=== PATIENT | male | born 1955 | race Caucasian/White ===

== ENCOUNTER 2019-03-25 12:46 | Inpatient (IN) | payer MEDICARE ==
[2019-03-25] MEDS ORDERED: DILTIAZEM DRIP BOLUS FROM BAG 1 MG SOLN IV ONE (13:33)
[2019-03-25] MEDS ORDERED: methylPREDNISolone SOD SUCCI 125 MG/2 ML VIAL IV STA (13:34)
[2019-03-25] MEDS ORDERED: SODIUM CHLORIDE 0.9% 500 ML 500 ML IV ONE (13:34)
[2019-03-25] MEDS ORDERED: IPRATROPIUM-ALBUTEROL 3 ML NEB INHALATION STA (13:34)
[2019-03-25] MEDS ORDERED: ADENOSINE 3 MG/ML 2 ML VIAL IVP STA (13:43)
[2019-03-25] MEDS: DILTIAZEM 125 MG in SODIUM CHLORIDE 0.9% 100 ML IV SCH ×2 (13:46→20:08)
--- NOTE | 2019-03-25 13:48 | ED ---
General Adult HPI - General Chief complaint: Shortness of Breath Stated complaint: SOB Time Seen by Provider: 03/25/19 13:00 Source: patient, RN notes reviewed Mode of arrival: wheelchair Limitations: no limitations - History of Present Illness Initial comments: This is a 63-year-old male with a past medical history significant for COPD. Patient states he has been calm more more short of breath lately he's been using treatments at home but he has not improved. Patient states he also is coughing more than normal. Patient denies any significant sputum production. Patient states he feels his heart racing and that is been ongoing for about a week. Patient denies any chest pain.. Patient denies any fever chills. Patient is denying any abdominal pain patient denies nausea vomiting diarrhea. Patient states he has been having some swelling to the legs more so on the right than the left. - Related Data Home Medications Medication Instructions Recorded Confirmed Albuterol Sulfate [Proair Hfa] 1 - 2 puff INHALATION RT-Q4H PRN 03/25/19 03/25/19 Budesonide [Pulmicort] 0.5 mg INHALATION RT-BID 03/25/19 03/25/19 Enalapril [Vasotec] 20 mg PO DAILY 03/25/19 03/25/19 Fluticasone/Umeclidin/Vilanter 1 puff INHALATION RT-DAILY 03/25/19 03/25/19 [Trelegy Ellipta 100-62.5-25] Furosemide [Lasix] 20 mg PO MOWEFR 03/25/19 03/25/19 HYDROcodone/APAP 5-325MG [[place] 1 tab PO BID 03/25/19 03/25/19 5-325] Ipratropium-Albuterol Nebulize 3 ml INHALATION RT-QID 03/25/19 03/25/19 [Duoneb 0.5 mg-3 mg/3 ml Soln] Metoprolol Succinate (ER) [Toprol 100 mg PO DAILY 03/25/19 03/25/19 Xl] Tamsulosin [Flomax] 0.4 mg PO DAILY 03/25/19 03/25/19 busPIRone HCl [Buspar] 10 mg PO BID 03/25/19 03/25/19 predniSONE 5 mg PO DAILY 03/25/19 03/25/19 rOPINIRole HCL [Requip] 3 mg PO TID 03/25/19 03/25/19 Allergies Allergy/AdvReac Type Severity Reaction Status Date / Time No Known Allergies Allergy Verified 03/25/19 13:33 Review of Systems ROS Statement: Those systems with pertinent positive or pertinent negative responses have been documented in the HPI. ROS Other: All systems not noted in ROS Statement are negative. Past Medical History Past Medical History: Coronary Artery Disease (CAD), COPD, Hyperlipidemia, Hypertension, Myocardial Infarction ([place]) Additional Past Medical History / Comment(s): EMPHYSEMA History of Any Multi-Drug Resistant Organisms: None Reported Past Surgical History: Heart Catheterization With Stent, Hernia Repair, Orthopedic Surgery Past Psychological History: No Psychological Hx Reported Smoking Status: Former smoker Past Alcohol Use History: None Reported Past Drug Use History: None Reported General Exam - General Exam Comments Initial Comments: GENERAL: Patient is well-developed and well-nourished. Patient is nontoxic and well- hydrated and is in mild distress. ENT: Neck is soft and supple. No significant lymphadenopathy is noted. Oropharynx is clear. Moist mucous membranes. Neck has full range of motion without eliciting any pain. EYES: The sclera were anicteric and conjunctiva were pink and moist. Extraocular movements were intact and pupils were equal round and reactive to light. Eyelids were unremarkable. PULMONARY: Patient is not moving much air. CARDIOVASCULAR: Patient's heart rate is about 160 beats a minute ABDOMEN: Soft and nontender with normal bowel sounds. No palpable organomegaly was noted. There is no palpable pulsatile mass. SKIN: Skin is clear with no lesions or rashes and otherwise unremarkable. NEUROLOGIC: Patient is alert and oriented x3. Cranial nerves II through XII are grossly intact. Motor and sensory are also intact. Normal speech, volume and content. Symmetrical smile. MUSCULOSKELETAL: Normal extremities with adequate strength and full range of motion. No lower extremity swelling or edema. No calf tenderness. LYMPHATICS: No significant lymphadenopathy is noted PSYCHIATRIC: Normal psychiatric evaluation. Limitations: no limitations Course Vital Signs 03/25/19 03/25/19 03/25/19 13:05 13:49 13:50 Temperature 98.4 F Pulse Rate 161 H 161 H Respiratory 28 H 24 24 Rate Blood Pressure 126/99 133/87 O2 Sat by Pulse 93 L 96 Oximetry 03/25/19 03/25/19 03/25/19 13:57 14:04 14:20 Temperature Pulse Rate 163 H 163 H 152 H Respiratory 22 22 24 Rate Blood Pressure 121/75 105/83 118/82 O2 Sat by Pulse 96 95 94 L Oximetry 03/25/19 03/25/19 15:40 15:44 Temperature Pulse Rate 151 H 158 H Respiratory 24 26 H Rate Blood Pressure 110/80 119/50 O2 Sat by Pulse 92 L 93 L Oximetry Medical Decision Making - Medical Decision Making EKG shows supraventricular tachycardia at 163 bpm QRS is 90 QT interval 306 QTC is 503. I tried 6 mg of adenosine slowed the patient's heart rate down however it looked at that point in time that the patient was in atrial flutter. Patient's heart rate immediately went back up to 160 beats a minute After the adenosine was given another EKG was done shows a heart rate of 155 bpm it appears that the patient is in atrial flutter. QRS is 92 QT interval is 272 QTC is 437. Patient's CT to rule out PE. He was negative. Patient was placed on heparin and Cardizem drip was started and continued. Patient did receive a couple boluses of Cardizem. I spoke with because he agreed to admit the patient he admitted the patient cannot saw the patient. I offered started the patient on amiodarone and Dr. Ewing wanted to continue with the Cardizem at this time. - Lab Data Result diagrams: 03/25/19 13:34 03/25/19 13:34 Lab Results 03/25/19 03/25/19 03/25/19 Range/Units 13:34 13:34 13:34 WBC 6.6 (3.8-10.6) k/uL RBC 3.42 L (4.30-5.90) m/uL Hgb 11.3 L (13.0-17.5) gm/dL Hct 33.7 L (39.0-53.0) % MCV 98.3 (80.0-100.0) fL MCH 33.1 (25.0-35.0) pg MCHC 33.6 (31.0-37.0) g/dL RDW 14.6 (11.5-15.5) % Plt Count 271 (150-450) k/uL Neutrophils % 70 % Lymphocytes % 17 % Monocytes % 7 % Eosinophils % 2 % Basophils % 1 % Neutrophils # 4.6 (1.3-7.7) k/uL Lymphocytes # 1.1 (1.0-4.8) k/uL Monocytes # 0.5 (0-1.0) k/uL Eosinophils # 0.1 (0-0.7) k/uL Basophils # 0.0 (0-0.2) k/uL PT 10.2 (9.0-12.0) sec INR 0.9 (<1.2) APTT 25.3 (22.0-30.0) sec D-Dimer 1.03 H (<0.60) mg/L FEU Sodium 142 (137-145) mmol/L Potassium 4.3 (3.5-5.1) mmol/L Chloride 101 (98-107) mmol/L Carbon Dioxide 34 H (22-30) mmol/L Anion Gap 7 mmol/L BUN 21 H (9-20) mg/dL Creatinine 0.93 (0.66-1.25) mg/dL Est GFR (CKD-EPI)AfAm >90 (>60 ml/min/1.73 sqM) Est GFR (CKD-EPI)NonAf 86 (>60 ml/min/1.73 sqM) Glucose 109 H (74-99) mg/dL Calcium 9.3 (8.4-10.2) mg/dL Magnesium 2.1 (1.6-2.3) mg/dL Total Bilirubin 0.2 (0.2-1.3) mg/dL AST 30 (17-59) U/L ALT 25 (21-72) U/L Alkaline Phosphatase 49 (38-126) U/L Troponin I (0.000-0.034) ng/mL NT-Pro-B Natriuret Pep pg/mL Total Protein 6.8 (6.3-8.2) g/dL Albumin 4.1 (3.5-5.0) g/dL 03/25/19 03/25/19 Range/Units 13:34 13:34 WBC (3.8-10.6) k/uL RBC (4.30-5.90) m/uL Hgb (13.0-17.5) gm/dL Hct (39.0-53.0) % MCV (80.0-100.0) fL MCH (25.0-35.0) pg MCHC (31.0-37.0) g/dL RDW (11.5-15.5) % Plt Count (150-450) k/uL Neutrophils % % Lymphocytes % % Monocytes % % Eosinophils % % Basophils % % Neutrophils # (1.3-7.7) k/uL Lymphocytes # (1.0-4.8) k/uL Monocytes # (0-1.0) k/uL Eosinophils # (0-0.7) k/uL Basophils # (0-0.2) k/uL PT (9.0-12.0) sec INR (<1.2) APTT (22.0-30.0) sec D-Dimer (<0.60) mg/L FEU Sodium (137-145) mmol/L Potassium (3.5-5.1) mmol/L Chloride (98-107) mmol/L Carbon Dioxide (22-30) mmol/L Anion Gap mmol/L BUN (9-20) mg/dL Creatinine (0.66-1.25) mg/dL Est GFR (CKD-EPI)AfAm (>60 ml/min/1.73 sqM) Est GFR (CKD-EPI)NonAf (>60 ml/min/1.73 sqM) Glucose (74-99) mg/dL Calcium (8.4-10.2) mg/dL Magnesium (1.6-2.3) mg/dL Total Bilirubin (0.2-1.3) mg/dL AST (17-59) U/L ALT (21-72) U/L Alkaline Phosphatase (38-126) U/L Troponin I <0.012 (0.000-0.034) ng/mL NT-Pro-B Natriuret Pep 1170 pg/mL Total Protein (6.3-8.2) g/dL Albumin (3.5-5.0) g/dL Critical Care Time Critical Care Time: Yes Total Critical Care Time: 35 Disposition Clinical Impression: Atrial flutter with rapid ventricular response, COPD (chronic obstructive pulmonary disease) Disposition: ADMITTED IP TO THIS [facility] Referrals: Justino Baldwin MD [Primary Care Provider] - 1-2 days Time of Disposition: 16:20
[2019-03-25 14:20] LABS: Basophils % (A) 1 %; Eosinophils # (A) 0.1 k/uL (0-0.7); Eosinophils % (A) 2 %; HCT 33.7 % (39.0-53.0); HGB 11.3 gm/dL (13.0-17.5); Lymphocytes # (A) 1.1 k/uL (1.0-4.8); Lymphocytes % (A) 17 %; MCH 33.1 pg (25.0-35.0); MCHC 33.6 g/dL (31.0-37.0); MCV 98.3 fL (80.0-100.0); Mean Platelet Volume 7.5; Monocytes # (A) 0.5 k/uL (0-1.0); Monocytes % (A) 7 %; Neutrophils # (A) 4.6 k/uL (1.3-7.7); Neutrophils % (A) 70 %; Platelet Count 271 k/uL (150-450); RBC 3.42 m/uL (4.30-5.90); RDW 14.6 % (11.5-15.5); WBC 6.6 k/uL (3.8-10.6)
[2019-03-25 14:32] LABS: ALT 25 U/L (21-72); AST 30 U/L (17-59); African American GFR (CKD) >90 (>60 ml/min/1.73 sqM); Albumin 4.1 g/dL (3.5-5.0); Alkaline Phosphatase 49 U/L (38-126); Anion Gap 7 mmol/L; Blood Urea Nitrogen 21 mg/dL (9-20); Calcium 9.3 mg/dL (8.4-10.2); Carbon Dioxide 34 mmol/L (22-30); Chloride 101 mmol/L (98-107); Glucose 109 mg/dL (74-99); Magnesium 2.1 mg/dL (1.6-2.3); Potassium 4.3 mmol/L (3.5-5.1); Sodium 142 mmol/L (137-145); Total Bilirubin 0.2 mg/dL (0.2-1.3); Total Protein 6.8 g/dL (6.3-8.2)
--- NOTE | 2019-03-25 14:35 | XR ---
EXAMINATION TYPE: XR chest 2V DATE OF EXAM: 03/25/2019 COMPARISON: Chest x-ray 09/25/2018 HISTORY: Difficulty breathing, shortness of breath TECHNIQUE: Frontal and lateral views of the chest are obtained. FINDINGS: There are prominent lung volumes with flattening the hemidiaphragms. Interstitium is incre ased. Aorta is dense. Heart is size is stable. No evident pneumothorax or pleural effusion. IMPRESSION: No acute abnormality.
[2019-03-25 14:37] LABS: INR 0.9 (<1.2); Partial Thromboplastin Time 25.3 sec (22.0-30.0); Prothrombin Time 10.2 sec (9.0-12.0)
[2019-03-25 14:45] LABS: D-Dimer 1.03 mg/L FEU (<0.60)
[2019-03-25] MEDS ORDERED: HEPARIN SODIUM,PORCINE 5,000 UNIT/ML 1 ML VIAL IV ONE (14:50)
[2019-03-25] MEDS: HEPARIN SOD,PORK IN 0.45% NACL 25,000 UNIT in 0.45% NACL 1 250ML.BAG IV SCH (15:08)
[2019-03-25] MEDS ORDERED: DILTIAZEM DRIP BOLUS FROM BAG 1 MG SOLN IV STA ×2 (15:31→20:03)
--- NOTE | 2019-03-25 15:44 | P.HPIM ---
History of Present Illness Patient is pleasant 58-year-old gentleman came in with compensative shortness of breath restarted couple days ago denied any significant alcohol orthopnea paroxysmal nocturnal dyspnea. Chest x-ray did not show pneumonia pulmonary ed moi. BNP is around 1100. Patient appears to have some bronchial tachycardia was given Pitocin followed by atrial flutter or fibrillation.'s heart rates to me still remains high at 160s on Cardizem. This is a new onset atrial fibrillation patient does have history of coronary artery disease stents in the past. Patient's white blood cell count is 6.6 d-dimer is minimally elevated because of which patient is getting a CT angios the chest to rule out pulmonary embolism. Review of Systems REVIEW OF SYSTEMS: CONSTITUTIONAL: No fever, no malaise, no fatigue. HEENT: No recent visual problems or hearing problems. Denied any sore throat. CARDIOVASCULAR: No chest pain, orthopnea, PND, no syncope. PULMONARY: no cough, no hemoptysis. GASTROINTESTINAL: No diarrhea, no nausea, no vomiting, no abdominal pain. NEUROLOGICAL: No headaches, no weakness, no numbness. HEMATOLOGICAL: Denies any bleeding or petechiae. GENITOURINARY: Denies any burning micturition, frequency, or urgency. MUSCULOSKELETAL/RHEUMATOLOGICAL: Denies any joint pain, swelling, or any muscle pain. ENDOCRINE: Denies any polyuria or polydipsia. The rest of the 14-point review of systems is negative. Past Medical History Past Medical History: Coronary Artery Disease (CAD), COPD, Hyperlipidemia, Hypertension, Myocardial Infarction ([place]) Additional Past Medical History / Comment(s): EMPHYSEMA History of Any Multi-Drug Resistant Organisms: None Reported Past Surgical History: Heart Catheterization With Stent, Hernia Repair, Orthopedic Surgery Past Psychological History: No Psychological Hx Reported Smoking Status: Former smoker Past Alcohol Use History: None Reported Past Drug Use History: None Reported Medications and Allergies Home Medications Medication Instructions Recorded Confirmed Type Albuterol Sulfate [Proair Hfa] 1 - 2 puff INHALATION RT-Q4H PRN 03/25/19 03/25/19 History Budesonide [Pulmicort] 0.5 mg INHALATION RT-BID 03/25/19 03/25/19 History Enalapril [Vasotec] 20 mg PO DAILY 03/25/19 03/25/19 History Fluticasone/Umeclidin/Vilanter 1 puff INHALATION RT-DAILY 03/25/19 03/25/19 History [Trelegy Ellipta 100-62.5-25] Furosemide [Lasix] 20 mg PO MOWEFR 03/25/19 03/25/19 History HYDROcodone/APAP 5-325MG [[place] 1 tab PO BID 03/25/19 03/25/19 History 5-325] Ipratropium-Albuterol Nebulize 3 ml INHALATION RT-QID 03/25/19 03/25/19 History [Duoneb 0.5 mg-3 mg/3 ml Soln] Metoprolol Succinate (ER) [Toprol 100 mg PO DAILY 03/25/19 03/25/19 History Xl] Tamsulosin [Flomax] 0.4 mg PO DAILY 03/25/19 03/25/19 History busPIRone HCl [Buspar] 10 mg PO BID 03/25/19 03/25/19 History predniSONE 5 mg PO DAILY 03/25/19 03/25/19 History rOPINIRole HCL [Requip] 3 mg PO TID 03/25/19 03/25/19 History Allergies Allergy/AdvReac Type Severity Reaction Status Date / Time No Known Allergies Allergy Verified 03/25/19 13:33 Physical Exam Vitals: Vital Signs Temp Pulse Resp BP Pulse Ox 03/25/19 14:20 152 H 24 118/82 94 L 03/25/19 14:04 163 H 22 105/83 95 03/25/19 13:57 163 H 22 121/75 96 03/25/19 13:50 24 03/25/19 13:49 161 H 24 133/87 96 03/25/19 13:05 98.4 F 161 H 28 H 126/99 93 L Intake and Output 03/25/19 03/25/19 03/25/19 06:59 14:59 22:59 Other: Weight 99.79 kg PHYSICAL EXAMINATION: GENERAL: The patient is alert and oriented x3, not in any acute distress. Obese HEENT: Pupils are round and equally reacting to light. EOMI. No scleral icterus. No conjunctival pallor. Normocephalic, atraumatic. No pharyngeal erythema. No thyromegaly. CARDIOVASCULAR: S1 and S2 present. No murmurs, rubs, or gallops. PULMONARY: Diminished air entry into bilateral lung diamond ABDOMEN: Soft, nontender, nondistended, normoactive bowel sounds. No palpable organomegaly. MUSCULOSKELETAL: No joint swelling or deformity. EXTREMITIES: No cyanosis, clubbing, or pedal edema. NEUROLOGICAL: Gross neurological examination did not reveal any focal deficits. SKIN: No rashes. Results CBC & Chem 7: 03/25/19 13:34 03/25/19 13:34 Labs: Abnormal Lab Results - Last 24 Hours (Table) 03/25/19 03/25/19 03/25/19 Range/Units 13:34 13:34 13:34 RBC 3.42 L (4.30-5.90) m/uL Hgb 11.3 L (13.0-17.5) gm/dL Hct 33.7 L (39.0-53.0) % D-Dimer 1.03 H (<0.60) mg/L FEU Carbon Dioxide 34 H (22-30) mmol/L BUN 21 H (9-20) mg/dL Glucose 109 H (74-99) mg/dL Assessment and Plan Plan: -Shortness of breath: Probably secondary to cardiac arrhythmia including atrial fibrillation or flutter contributing to that patient is on Cardizem which will be continued patient doesn't have any history of congestive heart failure do not have any echocardiogram available chest x-ray did not show any pulmonary edema. Patient is not in COPD exacerbation, quit smoking years ago -COPD without any acute exacerbation -Elevated d-dimer and CT angios of the chest is being obtained to rule out pulmonary embolism because of shortness of breath and tachycardia as mentioned above -Chronic hypercapnic respiratory failure with end-stage COPD uses 4 L of oxygen at home presently on 4 L. -Coronary disease with stent in the past -Hyperlipidemia -Hypertension as patient is on Cardizem I'm resuming his blood pressure because of that hold off on MARTA inhibitor at this time
--- NOTE | 2019-03-25 15:52 | CT ---
EXAMINATION TYPE: CT chest angio for PE DATE OF EXAM: 03/25/2019 COMPARISON: HISTORY: severe shortness of breath CT DLP: 453.7 mGycm CONTRAST: CT chest with contrast and 3D reconstruction with MIP imaging is performed with IV Contrast, patient injected with 100 mL of Isovue 370. Contrast-enhanced CT of the chest was performed through the course of the pulmonary arteries with gregory g and mediastinal window settings submitted. 3D reconstruction with MIP imaging was also performed. PULMONARY ARTERIES: The pulmonary arteries and their major tributaries are patent. I do not see naila dence for sizable filling defect to suggest pulmonary embolic process. LUNGS: Scattered groundglass opacity seen within both lung diamond may reflect acute inflammatory proc ess. 3 right lower lobe pulmonary nodules noted measuring up to 8.2 mm. Follow-up CT is advised in 3 months. Lower lobe atelectasis. MEDIASTINUM: Thoracic aorta is of normal caliber,however, evaluation is limited given timing of the contrast bolus. If there is concern for thoracic aortic pathology consider AYAKA. Correlate clinicall y . The heart is not enlarged. No evidence for mediastinal mass. No mediastinal lymph nodes greater than 1cm. HILAR STRUCTURES: No evidence for mass. No hilar lymph nodes greater than 1 cm. UPPER ABDOMEN: No significant abnormality is seen. IMPRESSION: 1. No evidence for Pulmonary embolism at this time. 2. Correlate for acute inflammatory process. 3. 3 month follow up for nonspecific right lower lobe pulmonary nodularity.
[2019-03-25] MEDS ORDERED: ROPINIROLE HCL 3 MG PO SCH (16:00)
[2019-03-25] MEDS: IPRATROPIUM-ALBUTEROL 3 ML NEB INHALATION SCH ×3 (16:05→22:50)
[2019-03-25] MEDS ORDERED: NITROGLYCERIN SL TABS 0.4 MG TAB SUBLINGUAL PRN (16:20)
[2019-03-25] MEDS ORDERED: METOPROLOL TARTRATE 50 MG TAB PO STA (20:04)
[2019-03-25] MEDS: methylPREDNISolone SOD SUCCI 125 MG/2 ML VIAL IV SCH ×2 (20:14→23:50)
[2019-03-25] MEDS: HYDROcodone/APAP 5-325MG 1 EACH TAB PO SCH (21:01)
[2019-03-25] MEDS: busPIRone HCl 10 MG TAB PO SCH (21:02)
[2019-03-25] MEDS: BUDESONIDE 0.5 MG/2 ML NEBU INHALATION SCH (22:50)
[2019-03-26] MEDS ORDERED: DILTIAZEM DRIP BOLUS FROM BAG 1 MG SOLN IV ONE (00:31)
[2019-03-26] MEDS: DILTIAZEM 125 MG in SODIUM CHLORIDE 0.9% 100 ML IV SCH ×2 (01:03→12:42)
[2019-03-26] MEDS: IPRATROPIUM-ALBUTEROL 3 ML NEB INHALATION PRN (01:21)
[2019-03-26 01:50] LABS: Cholesterol 192 mg/dL (<200); HDL Cholesterol 50 mg/dL (40-60); LDL Cholesterol,Calculated 127 mg/dL (0-99); Triglycerides 76 mg/dL (<150)
[2019-03-26] MEDS: methylPREDNISolone SOD SUCCI 125 MG/2 ML VIAL IV SCH ×3 (06:28→17:55)
[2019-03-26 07:10] LABS: Glucose,Whole Blood 163 mg/dL (75-99)
[2019-03-26] MEDS: BUDESONIDE 0.5 MG/2 ML NEBU INHALATION SCH (07:28)
[2019-03-26] MEDS: IPRATROPIUM-ALBUTEROL 3 ML NEB INHALATION SCH ×4 (07:28→19:37)
--- NOTE | 2019-03-26 08:39 | P.CRDCN ---
History of Present Illness Consult date: 03/26/19 Requesting physician: Violeta Ford Consult reason: atrial flutter, shortness of breath Chief complaint: Short of breath History of present illness: This is a 63-year-old gentleman with known history of coronary artery disease, he had a myocardial infarction in 2001 which time he underwent 6 stent placements according to him, he does not follow regularly with her surgery tech, he has a history of hypertension, hyperlipidemia, not on statin, history of severe COPD prior nicotine dependence. The patient presents to the hospital on this occasion with symptoms of difficulty in breathing. Chest x-ray did not reveal any acute changes, CT of the chest was also performed which did not reveal evidence of pulmonary embolism and did however reveal 3 right lower lobe pulmonary nodules measuring up to 8.2 mm. EKG on arrival here showed atrial flutter with a rapid ventricular response, patient was given adenosine in the emergency room with no results, he was then initiated on a Cardizem drip. His heart rate this morning is in the 120 range. Blood pressure 113/60, heart rate in the 120s this morning, 91% on 5 L of oxygen. White blood cell count 6.6, hemoglobin 11.3, platelet count 271, d-dimer 1.03, sodium 142, potassium 4.3, BUN 21 and creatinine 0.9. Troponins negative 3, BNP [id number]. At the time of my examination this morning, the patient is complaining of persistently feeling quite short of breath. He is on 5 L of oxygen, satting 91%. Past Medical History Past Medical History: Coronary Artery Disease (CAD), COPD, Hyperlipidemia, Hypertension, Myocardial Infarction (ID) Additional Past Medical History / Comment(s): EMPHYSEMA, wears 3-4L NC of oxygen Last Myocardial Infarction Date:: 2001 History of Any Multi-Drug Resistant Organisms: None Reported Past Surgical History: Heart Catheterization With Stent, Hernia Repair, Orthopedic Surgery Past Anesthesia/Blood Transfusion Reactions: No Reported Reaction Date of Last Stent Placement:: 2001 Past Psychological History: No Psychological Hx Reported Smoking Status: Former smoker Past Alcohol Use History: Occasional Past Drug Use History: None Reported - Past Family History Father History Unknown: Yes Medications and Allergies Home Medications Medication Instructions Recorded Confirmed Type Albuterol Sulfate [Proair Hfa] 1 - 2 puff INHALATION RT-Q4H PRN 03/25/19 03/25/19 History Budesonide [Pulmicort] 0.5 mg INHALATION RT-BID 03/25/19 03/25/19 History Enalapril [Vasotec] 20 mg PO DAILY 03/25/19 03/25/19 History Fluticasone/Umeclidin/Vilanter 1 puff INHALATION RT-DAILY 03/25/19 03/25/19 History [Trelegy Ellipta 100-62.5-25] Furosemide [Lasix] 20 mg PO MOWEFR 03/25/19 03/25/19 History HYDROcodone/APAP 5-325MG [[place] 1 tab PO BID 03/25/19 03/25/19 History 5-325] Ipratropium-Albuterol Nebulize 3 ml INHALATION RT-QID 03/25/19 03/25/19 History [Duoneb 0.5 mg-3 mg/3 ml Soln] Metoprolol Succinate (ER) [Toprol 100 mg PO DAILY 03/25/19 03/25/19 History Xl] Tamsulosin [Flomax] 0.4 mg PO DAILY 03/25/19 03/25/19 History busPIRone HCl [Buspar] 10 mg PO BID 03/25/19 03/25/19 History predniSONE 5 mg PO DAILY 03/25/19 03/25/19 History rOPINIRole HCL [Requip] 3 mg PO TID 03/25/19 03/25/19 History Allergies Allergy/AdvReac Type Severity Reaction Status Date / Time No Known Allergies Allergy Verified 03/25/19 13:33 Physical Exam Vitals: Vital Signs Temp Pulse Pulse Resp BP BP Pulse Ox 03/26/19 07:51 90 03/26/19 07:31 86 91 L 03/26/19 04:00 97.7 F 133 H 22 113/66 95 03/26/19 01:31 151 H 22 03/26/19 01:21 143 H 22 03/26/19 00:00 98.4 F 114 H 22 124/89 93 L 03/25/19 20:29 98.9 F 159 H 24 105/95 93 L 03/25/19 20:17 141 H 22 89/74 93 L 03/25/19 20:12 140 H 22 110/90 93 L 03/25/19 20:00 98.1 F 158 H 24 157/92 90 L 03/25/19 19:02 137 H 22 108/81 93 L 03/25/19 18:11 158 H 22 115/87 94 L 03/25/19 17:19 141 H 22 131/89 94 L 03/25/19 17:17 151 H 20 03/25/19 17:12 154 H 24 116/98 97 03/25/19 17:06 160 H 24 03/25/19 15:44 158 H 26 H 119/50 93 L 03/25/19 15:40 151 H 24 110/80 92 L 03/25/19 14:20 152 H 24 118/82 94 L 03/25/19 14:04 163 H 22 105/83 95 03/25/19 13:57 163 H 22 121/75 96 03/25/19 13:50 24 03/25/19 13:49 161 H 24 133/87 96 03/25/19 13:05 98.4 F 161 H 28 H 126/99 93 L Intake and Output 03/25/19 03/26/19 03/26/19 22:59 06:59 14:59 Intake Total 31.833 147.167 Output Total 150 Balance 31.833 -2.833 Intake: Intake, IV Titration 31.833 147.167 Amount Diltiazem 125 mg In 31.833 49.167 Sodium Chloride 0.9% 100 ml @ 15 MG/HR 15 mls/hr IV .Q8H20M HUGH Rx#: [id number] Heparin Sod,Pork in 0.45% 98 NaCl 25,000 unit In 0.45 % NaCl 1 250ml.bag @ 10. 021 UNITS/KG/HR 10 mls/hr IV .Q24H HUGH Rx#: [id number] Output: Urine 150 Other: Voiding Method Urinal Urinal PHYSICAL EXAMINATION: GENERAL: 63-year-old gentleman, complaining of short of breath at the time of my examination HEENT: Head is atraumatic, normocephalic. Pupils equal, round. Sclera a nicteric. Conjunctiva are clear. Mucous membranes of the mouth are moist. Neck is supple. There is no elevated jugular venous pressure. No carotid bruit is heard. HEART EXAMINATION: Heart S1 and S2 irregularly irregular CHEST EXAMINATION: Lungs reveal decreased air entry throughout, scattered wheezing throughout. ABDOMEN: Soft, nontender. Bowel sounds are heard. No organomegaly noted. EXTREMITIES: 2+ peripheral pulses with no evidence of peripheral edema and no calf tenderness noted. NEUROLOGIC [patient is awake, alert and oriented 3 . Results 03/25/19 13:34 03/25/19 13:34 Cardiac Enzymes 03/25/19 03/25/19 03/25/19 Range/Units 13:34 13:34 19:34 AST 30 (17-59) U/L Troponin I <0.012 <0.012 (0.000-0.034) ng/mL 03/26/19 Range/Units 01:10 AST (17-59) U/L Troponin I <0.012 (0.000-0.034) ng/mL Coagulation 03/25/19 03/25/19 03/26/19 Range/Units 13:34 21:06 06:41 PT 10.2 (9.0-12.0) sec APTT 25.3 30.6 H 36.3 H (22.0-30.0) sec Lipids 03/26/19 Range/Units 01:10 Triglycerides 76 (<150) mg/dL Cholesterol 192 (<200) mg/dL HDL Cholesterol 50 (40-60) mg/dL CBC 03/25/19 Range/Units 13:34 WBC 6.6 (3.8-10.6) k/uL RBC 3.42 L (4.30-5.90) m/uL Hgb 11.3 L (13.0-17.5) gm/dL Hct 33.7 L (39.0-53.0) % Plt Count 271 (150-450) k/uL Comprehensive Metabolic Panel 03/25/19 Range/Units 13:34 Sodium 142 (137-145) mmol/L Potassium 4.3 (3.5-5.1) mmol/L Chloride 101 (98-107) mmol/L Carbon Dioxide 34 H (22-30) mmol/L BUN 21 H (9-20) mg/dL Creatinine 0.93 (0.66-1.25) mg/dL Glucose 109 H (74-99) mg/dL Calcium 9.3 (8.4-10.2) mg/dL AST 30 (17-59) U/L ALT 25 (21-72) U/L Alkaline Phosphatase 49 (38-126) U/L Total Protein 6.8 (6.3-8.2) g/dL Albumin 4.1 (3.5-5.0) g/dL Current Medications Generic Name Dose Route Start Last Admin Trade Name Freq PRN Reason Stop Dose Admin Hydrocodone Bitart/Acetaminophen 1 each 03/25/19 21:00 03/25/19 21:01 [place] 5-325 PO 1 each BID HUGH Administration Albuterol/Ipratropium 3 ml 03/25/19 16:00 03/26/19 07:28 Duoneb 0.5 Mg-3 Mg/3 Ml Soln INHALATION 3 ml RT-QID HUGH Administration Albuterol/Ipratropium 3 ml 03/26/19 01:18 03/26/19 01:21 Duoneb 0.5 Mg-3 Mg/3 Ml Soln INHALATION 3 ml RT-QID PRN Administration Shortness Of Breath Or Wheezing Aspirin 325 mg 03/26/19 09:00 Aspirin PO DAILY [facility] Budesonide 0.5 mg 03/25/19 20:00 03/26/19 07:28 Pulmicort INHALATION 0.5 mg RT-BID HUGH Administration Buspirone HCl 10 mg 03/25/19 21:00 03/25/19 21:02 Buspar PO 10 mg BID HUGH Administration Diltiazem HCl 125 mg/ Sodium 125 mls @ 15 mls/hr 03/25/19 13:45 03/26/19 01:03 Chloride IV 10 mg/hr .Q8H20M HUGH 10 mls/hr Administration 15 MG/HR Heparin Sodium/Sodium Chloride 250 mls @ 10 mls/hr 03/25/19 15:00 03/26/19 00:56 25,000 unit/ Sodium Chloride IV 13.021 units/kg/hr .Q24H HUGH 12.994 mls/hr Titration Protocol 10.021 UNITS/KG/HR Methylprednisolone Sodium Succinate 60 mg 03/25/19 18:00 03/26/19 06:28 Solu-Medrol IV 60 mg Q6HR HUGH Administration Metoprolol Succinate 100 mg 03/26/19 09:00 Toprol Xl PO DAILY [facility] Nitroglycerin 0.4 mg 03/25/19 16:20 Nitrostat SUBLINGUAL Q5M PRN Chest Pain Prednisone 5 mg 03/26/19 09:00 PO DAILY HUGH Ropinirole HCl 3 mg 03/25/19 22:00 03/25/19 21:02 Requip PO 3 mg TID HUGH Administration Tamsulosin HCl 0.4 mg 03/26/19 09:00 Flomax PO DAILY HUGH Intake and Output 03/25/19 03/26/19 03/26/19 22:59 06:59 14:59 Intake Total 31.833 147.167 Output Total 150 Balance 31.833 -2.833 Intake: Intake, IV Titration 31.833 147.167 Amount Diltiazem 125 mg In 31.833 49.167 Sodium Chloride 0.9% 100 ml @ 15 MG/HR 15 mls/hr IV .Q8H20M HUGH Rx#: [id number] Heparin Sod,Pork in 0.45% 98 NaCl 25,000 unit In 0.45 % NaCl 1 250ml.bag @ 10. 021 UNITS/KG/HR 10 mls/hr IV .Q24H HUGH Rx#: [id number] Output: Urine 150 Other: Voiding Method Urinal Urinal 03/25/19 13:34 03/25/19 13:34 EKG Interpretations (text) EKG shows a flutter with rapid ventricular response Assessment and Plan Plan: Assessment and plan #1 symptoms of severe shortness of breath, wheezing, COPD exacerbation #2 atrial flutter with rapid ventricular response, secondary to COPD exacerbation #3 coronary artery disease with prior stent placements and myocardial infarction in 2001 #4 hypertension #5 hyperlipidemia #6 nicotine dependence history #7 severe COPD Plan We will obtain a TSH level, obtain echocardiogram with Doppler study. Decrease aspirin to 81 mg daily, continue IV heparin, I did have a discussion with the patient regarding anticoagulation for stroke prevention. We will ALSO optimize his medication for better heart rate control, patient may benefit from AYAKA and cardioversion, however at this time because the patient is having severe difficulty in breathing and cannot proceed with this until his COPD exacerbation has improved. Further recommendations to follow. DNP note has been reviewed, I agree with a documented findings and plan of care. Patient was seen and examined.
[2019-03-26] MEDS ORDERED: predniSONE 5 MG TAB PO SCH (09:00)
[2019-03-26] MEDS ORDERED: ASPIRIN 325 MG TAB PO SCH (09:00)
[2019-03-26] MEDS: busPIRone HCl 10 MG TAB PO SCH ×2 (09:04→21:18)
[2019-03-26] MEDS: ASPIRIN 81 MG PO SCH (09:04)
[2019-03-26] MEDS: HYDROcodone/APAP 5-325MG 1 EACH TAB PO SCH ×2 (09:04→16:14)
[2019-03-26] MEDS: METOPROLOL SUCCINATE (ER) 100 MG TAB.ER.24H PO SCH (09:05)
[2019-03-26] MEDS: TAMSULOSIN 0.4 MG CAP.ER.24H PO SCH (09:05)
--- NOTE | 2019-03-26 10:46 | P.PN ---
Subjective 58-year-old male was admitted for atrial fibrillation most probably secondary to COPD exacerbation patient is requiring 5 liters of oxygen. Patient is not wheezing with very limited air entry into bilateral lung diamond normally uses 4 L of oxygen at home. The right lower lobe pulmonary nodules on the CAT scan that was done yesterday there is no PE pulmonology was consult that. We will cut down the steroids to twice a day. Patient is still the in rapid ventricular rate and is on Cardizem. Constitutional: Denied any fatigue denied any fever. Cardio vascular: denied any chest pain, palpitations Gastrointestinal denied any nausea vomiting Pulmonary: Does have shortness of breath Neurologic denied any new focal deficits All inpatient medications were reviewed and appropriate changes in these medications as dictated in the interval history and assessment and plan. Objective - Vital Signs Vital signs: Vital Signs Temp 96.7 F L 03/26/19 08:45 Pulse 115 H 03/26/19 08:45 Resp 20 03/26/19 08:45 BP 126/84 03/26/19 08:45 Pulse Ox 91 L 03/26/19 08:45 Intake & Output 03/25/19 03/26/19 03/26/19 18:59 06:59 18:59 Intake Total 179.000 240 Output Total 150 100 Balance 29.000 140 Weight 99.79 kg Intake: Intake, IV Titration 179.000 Amount Diltiazem 125 mg In 81.000 Sodium Chloride 0.9% 100 ml @ 15 MG/HR 15 mls/hr IV .Q8H20M HUGH Rx#: [id number] Heparin Sod,Pork in 0.45% 98 NaCl 25,000 unit In 0.45 % NaCl 1 250ml.bag @ 10. 021 UNITS/KG/HR 10 mls/hr IV .Q24H HUGH Rx#: [id number] Oral 240 Output: Urine 150 100 Other: Voiding Method Urinal Urinal - Exam PHYSICAL EXAMINATION: GENERAL: The patient is alert and oriented x3, not in any acute distress. Obese HEENT: Pupils are round and equally reacting to light. EOMI. No scleral icterus. No conjunctival pallor. Normocephalic, atraumatic. No pharyngeal erythema. No thyromegaly. CARDIOVASCULAR: S1 and S2 present. No murmurs, rubs, or gallops. PULMONARY: Diminished air entry into bilateral lung diamond ABDOMEN: Soft, nontender, nondistended, normoactive bowel sounds. No palpable organomegaly. MUSCULOSKELETAL: No joint swelling or deformity. EXTREMITIES: No cyanosis, clubbing, or pedal edema. NEUROLOGICAL: Gross neurological examination did not reveal any focal deficits. SKIN: No rashes. - Labs CBC & Chem 7: 03/25/19 13:34 03/25/19 13:34 Labs: Abnormal Lab Results - Last 24 Hours (Table) 03/25/19 03/25/19 03/25/19 Range/Units 13:34 13:34 13:34 RBC 3.42 L (4.30-5.90) m/uL Hgb 11.3 L (13.0-17.5) gm/dL Hct 33.7 L (39.0-53.0) % APTT (22.0-30.0) sec D-Dimer 1.03 H (<0.60) mg/L FEU Carbon Dioxide 34 H (22-30) mmol/L BUN 21 H (9-20) mg/dL Glucose 109 H (74-99) mg/dL POC Glucose (mg/dL) (75-99) mg/dL LDL Cholesterol, Calc (0-99) mg/dL 03/25/19 03/26/19 03/26/19 Range/Units 21:06 01:10 06:41 RBC (4.30-5.90) m/uL Hgb (13.0-17.5) gm/dL Hct (39.0-53.0) % APTT 30.6 H 36.3 H (22.0-30.0) sec D-Dimer (<0.60) mg/L FEU Carbon Dioxide (22-30) mmol/L BUN (9-20) mg/dL Glucose (74-99) mg/dL POC Glucose (mg/dL) (75-99) mg/dL LDL Cholesterol, Calc 127 H (0-99) mg/dL 03/26/19 Range/Units 07:08 RBC (4.30-5.90) m/uL Hgb (13.0-17.5) gm/dL Hct (39.0-53.0) % APTT (22.0-30.0) sec D-Dimer (<0.60) mg/L FEU Carbon Dioxide (22-30) mmol/L BUN (9-20) mg/dL Glucose (74-99) mg/dL POC Glucose (mg/dL) 163 H (75-99) mg/dL LDL Cholesterol, Calc (0-99) mg/dL Assessment and Plan Plan: -Shortness of breath: Secondary to COPD exacerbation patient will be continued on steroids and inhalational treatments. They see because of COPD patient went into cardiac arrhythmia that his atrial flutter patient is presently on Cardizem and IV heparin -Atrial flutter: Seconded COPD exacerbation -Acute hypercapnic respiratory failure secondary to COPD exacerbation -COPD with exacerbation patient will be on systemic steroids and inhalational treatments -Elevated d-dimer and CT angios of the chest negative for PE but does have pulmonary nodules -Chronic hypercapnic respiratory failure with end-stage COPD uses 4 L of oxygen at home presently on 4 L. -Coronary disease with stent in the past -Hyperlipidemia -Hypertension as patient is on Cardizem I'm resuming his blood pressure because of that hold off on MARTA inhibitor at this time
[2019-03-26 11:51] LABS: Glucose,Whole Blood 144 mg/dL (75-99)
--- NOTE | 2019-03-26 12:32 | ECHOF ---
Referral Reason:aflutter MEASUREMENTS -------- HEIGHT: 177.8 cm WEIGHT: 99.8 kg BP: 113/66 RVIDd: 4.0 cm (< 3.3) IVSd: 1.2 cm (0.6 - 1.1) LVIDd: 4.2 cm (3.9 - 5.3) LVPWd: 1.2 cm (0.6 - 1.1) IVSs: 1.6 cm LVIDs: 3.0 cm LVPWs: 1.6 cm LA Diam: 3.7 cm (2.7 - 3.8) LAESV Index (A-L): 24.90 ml/m Ao Diam: 3.0 cm (2.0 - 3.7) AV Cusp: 1.8 cm (1.5 - 2.6) MV EXCURSION: 14.924 mm (> 18.000) MV EF SLOPE: 392 mm/s (70 - 150) EPSS: 0.6 cm RAP: 15.00 mmHg RVSP: 54.45 mmHg FINDINGS -------- Atrial fibrillation. This was a technically adequate study. The left ventricular size is normal. There is borderline concentric left ventricular hypertrophy. Overall left ventricular systolic function is low-normal with, an EF between 50 - 55 %. difficult to assess lv function accurately because of cardiac arrhythmia The right ventricle is moderately enlarged. Normal LA size by volume 22+/-6 ml/m2. The right atrium is normal in size. Interatrial and interventricular septum intact. There is mild aortic valve sclerosis. The mitral valve is normal. Mild tricuspid regurgitation present. There is moderate to severe pulmonary hypertension. The rig ht ventricular systolic pressure, as measured by Doppler, is 54.45mmHg. The pulmonic valve was not well visualized. The aortic root size is normal. The inferior vena cava is dilated with no significant inspiratory collapse which is consistent estima brittany right atrial pressure of 15 mmHg. There is no pericardial effusion. CONCLUSIONS -------- 1. Atrial fibrillation. 2. This was a technically adequate study. 3. The left ventricular size is normal. 4. There is borderline concentric left ventricular hypertrophy. 5. Difficult to assess lv function accurately because of cardiac arrhythmia 6. The right ventricle is moderately enlarged. 7. Normal LA size by volume 22+/-6 ml/m2. 8. The right atrium is normal in size. 9. Interatrial and interventricular septum intact. 10. There is mild aortic valve sclerosis. 11. The mitral valve is normal. 12. Mild tricuspid regurgitation present. 13. There is moderate to severe pulmonary hypertension. 14. The right ventricular systolic pressure, as measured by Doppler, is 54.45mmHg. 15. The pulmonic valve was not well visualized. 16. The aortic root size is normal. 17. The inferior vena cava is dilated with no significant inspiratory collapse which is consistent es timated right atrial pressure of 15 mmHg. 18. There is no pericardial effusion. CHILD CARE WORKER: Telma Post RDCS
[2019-03-26] MEDS: HEPARIN SOD,PORK IN 0.45% NACL 25,000 UNIT in 0.45% NACL 1 250ML.BAG IV SCH (12:46)
[2019-03-26] MEDS: INSULIN ASPART (NovoLOG) 100 UNIT/ML VIAL SQ SCH ×3 (12:48→21:18)
--- NOTE | 2019-03-26 13:12 | CONS ---
CONSULTATION PULMONARY/CRITICAL CARE CONSULTATION: DATE OF CONSULTATION: March 26, 2019 REASON FOR CONSULTATION: Shortness of breath. A 63-year-old male with a history of significant COPD. He apparently sees my partner Dr. Baldwin. He tells me that based on pulmonary function test, he has 14% lung function left. I suspect that is the value for his FEV 1%. Hence, he would have stage IV COPD. The patient apparently comes in complaining of profound shortness of breath. He has been using his treatments more frequently. He has also been coughing more than usual. Denies any significant phlegm production. In addition, he has got rapid heartbeat, palpitations and just feels that his heart is racing. Denies any chest pain or chest discomfort. There is no fever or chills. No hemoptysis. Denies any GI or complaints. He apparently was admitted with a diagnosis of COPD exacerbation complicated by purulent tracheobronchitis as well as atrial fibrillation with RVR. Currently, he is on IV heparin and Cardizem. When we went into the room, the patient was getting a breathing treatment. He states he is feeling a bit better today than he did yesterday when he first came in. HOME MEDICATIONS: His home medications include ProAir inhaler, Pulmicort updrafts, Vasotec, Trelegy, Lasix, [place], DuoNeb, metoprolol, Flomax, BuSpar, prednisone 5 mg a day, and Requip. ALLERGIES: Allergies are denied. MEDICAL HISTORY: Medical history includes severe stage IV COPD, FEV1 14% of predicted. He also has a history of CAD, hyperlipidemia, hypertension and previous myocardial infarction. SURGICAL HISTORY: Surgical history includes the PCI with stent placement, hernia repair, orthopedic procedures and other minor surgeries. SOCIAL HISTORY: Social history is positive for previous tobacco use. He smoked heavily for many years. Does not smoke currently. Denies alcohol or illicit drug use. FAMILY HISTORY: Family history is unremarkable. States his mother and father were both relatively healthy. OCCUPATIONAL HISTORY: Occupational history is noncontributory. 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 REVIEW OF SYSTEMS: CONSTITUTIONAL: Negative. NEUROLOGIC: Negative. HEENT: Negative. CARDIOVASCULAR: Rapid heartbeat, palpitations, fluttering in the chest without chest pain. PULMONARY: Shortness of breath, chest tightness, wheezing, cough, minimal phlegm production. GI: Negative. : Negative. RHEUMATOLOGIC: Negative. IMMUNOLOGIC: Negative. ENDOCRINOLOGIC: Negative. DERMATOLOGIC: Negative. PHYSICAL EXAMINATION: VITAL SIGNS: Current vital signs are reviewed. Temperature is 96.7, heart rate 115, respiratory rate 16, blood pressure 126/84, mean 98 and 5 L saturation 91%. GENERAL: He appears in no acute distress. Mildly tachypneic. No conversational dyspnea. No audible wheezing or use of accessory muscles. HEENT: Examination is grossly unremarkable. Nasal O2 in place. NECK: Supple. Full range of motion. No adenopathy or thyromegaly. Neck veins are flat. CARDIOVASCULAR: Examination reveals tachycardia. It is an irregular rhythm and rate consistent with atrial fibrillation. S1, S2 normal. No distinct murmur noted. LUNGS: Reveal expiratory wheezes and rhonchi. Breath sounds are severely diminished throughout. There is prolongation on forced maneuver. Adventitious lung sounds are more prominent on forced maneuver. Breath sounds are diminished throughout. ABDOMEN: Soft. Bowel sounds are heard. EXTREMITIES: Are intact. No cyanosis, clubbing, or edema. SKIN: Without rash. NEUROLOGIC: Examination is brief but nonfocal. LABS: Labs are reviewed. White count 6.6, hemoglobin 11.3, hematocrit 33.7, platelet count 271,000. PT/INR normal. PTT is 30.6. D-dimer is 1.03. Sodium, potassium, and chloride normal. CO2 is 34. Anion gap is 7. BUN and creatinine were 21 and 0.93. The rest of the labs look okay. Troponins are negative. Cholesterol 192. TSH is normal. X-RAYS: Chest x-ray shows only changes of COPD. CT angiogram shows no evidence of PE. There is a nonspecific right lower lobe pulmonary nodule noted. It measures about 8.2 mm. It will be followed up in the outpatient setting. The only other abnormality seen on CT scan is some diffuse ground-glass opacities or mosaic pattern consistent with alveolitis/pneumonitis. ASSESSMENT: 1. Chronic obstructive pulmonary disease exacerbation complicated by tracheobronchitis/pneumonitis/alveolitis, without melissa pneumonia. 2. Atrial fibrillation with rapid ventricular response, new onset. 3. No evidence of pulmonary embolism. 4. Severe chronic obstructive pulmonary disease with an FEV1 at 14% of predicted (Gold stage IV chronic obstructive pulmonary disease). 5. History of hypertension. 6. History of hyperlipidemia. 7. History of coronary artery disease with previous PCI and stent placement. 8. History of myocardial infarction. 9. Previous history of heavy tobacco use. PLAN: The patient will have medications adjusted accordingly. He will remain on IV Solu- Medrol and breathing treatments and antibiotics. Please see my orders. Prognosis is guarded given the fact that he has only 14% lung function. Additional recommendations and suggestions are forthcoming. Cardiology is on the case for his atrial fibrillation/RVR. There was no PE on CT angiogram. MMODL / IJN: [id number] /
[2019-03-26 16:37] LABS: Glucose,Whole Blood 174 mg/dL (75-99)
[2019-03-26] MEDS: BUDESONIDE 1 MG/2 ML NEBU INHALATION SCH (19:37)
[2019-03-26] MEDS: FORMOTEROL FUMARATE 20 MCG/2 ML NEBU INHALATION SCH (19:37)
[2019-03-26 21:00] LABS: Glucose,Whole Blood 152 mg/dL (75-99)
[2019-03-26] MEDS ORDERED: methylPREDNISolone SOD SUCCI 40 MG/ML 1 ML VIAL IV SCH (21:00)
[2019-03-26] MEDS: AMOXIC-POT CLAV 875-125MG 1 EACH TAB PO SCH (21:18)
[2019-03-26] MEDS ORDERED: HEPARIN SODIUM,PORCINE 5,000 UNIT/ML 1 ML VIAL IV PRN (21:24)
[2019-03-27] MEDS: methylPREDNISolone SOD SUCCI 125 MG/2 ML VIAL IV SCH ×4 (00:03→17:06)
[2019-03-27] MEDS: IPRATROPIUM-ALBUTEROL 3 ML NEB INHALATION PRN (02:32)
[2019-03-27] MEDS: HYDROcodone/APAP 5-325MG 1 EACH TAB PO SCH ×2 (05:28→19:31)
[2019-03-27 06:19] LABS: Glucose,Whole Blood 164 mg/dL (75-99)
[2019-03-27] MEDS: INSULIN ASPART (NovoLOG) 100 UNIT/ML VIAL SQ SCH ×4 (06:44→21:53)
[2019-03-27] MEDS: FORMOTEROL FUMARATE 20 MCG/2 ML NEBU INHALATION SCH ×2 (07:36→18:38)
[2019-03-27] MEDS: IPRATROPIUM-ALBUTEROL 3 ML NEB INHALATION SCH ×4 (07:36→18:38)
[2019-03-27] MEDS: BUDESONIDE 1 MG/2 ML NEBU INHALATION SCH ×2 (07:36→18:38)
[2019-03-27] MEDS: AMOXIC-POT CLAV 875-125MG 1 EACH TAB PO SCH ×2 (08:17→21:52)
[2019-03-27] MEDS: TAMSULOSIN 0.4 MG CAP.ER.24H PO SCH (08:17)
[2019-03-27] MEDS: METOPROLOL SUCCINATE (ER) 100 MG TAB.ER.24H PO SCH (08:18)
[2019-03-27] MEDS: HEPARIN SOD,PORK IN 0.45% NACL 25,000 UNIT in 0.45% NACL 1 250ML.BAG IV SCH (08:18)
[2019-03-27] MEDS: ASPIRIN 81 MG PO SCH (08:18)
[2019-03-27] MEDS: busPIRone HCl 10 MG TAB PO SCH ×2 (08:18→21:52)
--- NOTE | 2019-03-27 11:00 | PN ---
PROGRESS NOTE DATE OF SERVICE: 03/27/2019 This is a 63-year-old male with the diagnosis of COPD exacerbation. He sees my partner, Dr. Baldwin. He apparently has a pulmonary function test showing 14% FEV1. This makes him a Gold stage IV patient. He comes in with complaints of shortness of breath. It is quite significant. He apparently had been using his treatments at home frequently. Today, he is feeling only minimally better. The patient complains of chest tightness, wheezing, cough and shortness of breath. In addition, he has a history of atrial fibrillation and RVR. This is a new finding for him. It may be secondary to his chronic lung disease. Anyway, he is on IV heparin and Cardizem drip currently. Current vital signs are reviewed, temperature is 97.6 heart rate is 100, respiratory rate 20, blood pressure 133/65 mean 87, 5 L saturations about 90%. Appears in no acute distress. Mild conversational dyspnea. No audible wheezing. No use of accessory muscles. HEENT: Examination is grossly unremarkable. Nasal O2 noted. NECK: Supple. Full range of motion. No adenopathy or thyromegaly. Neck veins are flat. CARDIOVASCULAR: Examination reveals irregular rhythm and rate. He is tachycardic. Heart rate about 102. S1, S2 normal. It sounds like atrial fibrillation. LUNGS: Reveal severely diminished breath sounds. There are some high-pitched expiratory wheezes. No rhonchi. Breath sounds are diminished throughout. ABDOMEN: Soft. Bowel sounds are heard. EXTREMITIES: Intact. No cyanosis or clubbing. Mild edema. SKIN: Without rash. NEUROLOGIC: Examination is brief but nonfocal. LABS: Reviewed. PT, INR were 10.2 and 0.9. PTT is currently 61.5. No additional labs are noted. No recent chest x-ray noted. Medications are reviewed. He is on appropriate medications including Pulmicort, formoterol, albuterol, Atrovent, Solu-Medrol and Augmentin. ASSESSMENT: 1. Chronic obstructive pulmonary disease exacerbation complicated by tracheobronchitis/pneumonitis/valvulitis without melissa pneumonia. 2. Atrial fibrillation with rapid ventricular rate, new onset. 3. No evidence of pulmonary embolism. 4. Severe chronic obstructive pulmonary disease, with an FEV1 that is 14% of predicted (Gold stage IV disease). 5. History of hypertension. 6. History of hyperlipidemia. 7. Coronary artery disease with previous PCI and stent placement. 8. History of myocardial infarction. 9. Previous history of heavy tobacco use. 10.Lower extremity edema, with suspected cor pulmonale and secondary pulmonary hypertension. PLAN: The patient remains on IV heparin and Cardizem. The patient is on appropriate medications including short-acting beta agonist, short-acting muscarinic antagonist, long-acting beta agonist, inhaled corticosteroids, systemic corticosteroids and oral antibiotics. No additional recommendations are made. We will continue to follow. Prognosis is guarded. MMODL / IJN: [id number] /
[2019-03-27] MEDS: VERAPAMIL SR 240 MG TABLET.ER PO SCH (11:38)
[2019-03-27] MEDS: DILTIAZEM 125 MG in SODIUM CHLORIDE 0.9% 100 ML IV SCH ×2 (11:39→17:05)
--- NOTE | 2019-03-27 11:40 | XR ---
EXAMINATION TYPE: XR chest 1V DATE OF EXAM: 03/27/2019 COMPARISON: 09/25/2018 HISTORY: Difficulty breathing TECHNIQUE: Single frontal view of the chest is obtained. FINDINGS: Bilateral infiltrate and pleural effusion. Underlying COPD. Mild central interstitial nino bryan. No pneumonia thorax. Heart is enlarged. IMPRESSION: 1. COPD with bilateral infiltrate and pleural effusion correlate for mild venous congestion.
[2019-03-27 12:20] LABS: Glucose,Whole Blood 172 mg/dL (75-99)
--- NOTE | 2019-03-27 14:37 | P.PN ---
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 The patient presents to the hospital on this occasion with symptoms of difficulty in breathing. Chest x-ray did not reveal any acute changes, CT of the chest was also performed which did not reveal evidence of pulmonary embolism and did however reveal 3 right lower lobe pulmonary nodules measuring up to 8.2 mm. EKG on arrival here showed atrial flutter with a rapid ventricular response, patient was given adenosine in the emergency room with no results, he was then initiated on a Cardizem drip. His heart rate this morning is in the 120 range. Blood pressure 113/60, heart rate in the 120s this morning, 91% on 5 L of oxygen. White blood cell count 6.6, hemoglobin 11.3, platelet count 271, d-dimer 1.03, sodium 142, potassium 4.3, BUN 21 and creatinine 0.9. Troponins negative 3, BNP [id number]. At the time of my examination this morning, the patient is complaining of persistently feeling quite short of breath. He is on 5 L of oxygen, satting 91%. 03/27/2019 Patient was seen and examined this morning, states that he still quite short of breath, continues to have scattered wheezing throughout. Light completely flat in bed at this time. He continues to be in atrial flutter and his heart rate goes anywhere from 90s to 120s. LV function is normal. We will discontinue the beta jon and start the patient on verapamil, continue Cardizem drip until heart rate is stable, proceed with AYAKA and cardioversion on Saturday. Objective - Vital Signs Vital signs: Vital Signs Temp 97.7 F 03/27/19 12:00 Pulse 97 03/27/19 12:01 Resp 20 03/27/19 12:00 BP 138/73 03/27/19 12:00 Pulse Ox 92 L 03/27/19 12:00 Intake & Output 03/26/19 03/27/19 03/27/19 18:59 06:59 18:59 Intake Total 748.5 425.000 100 Output Total 100 150 300 Balance 648.5 275.000 -200 Weight 106 kg Intake: Intake, IV Titration 268.5 375.000 Amount Diltiazem 125 mg In 116.5 125.000 Sodium Chloride 0.9% 100 ml @ 15 MG/HR 15 mls/hr IV .Q8H20M [facility] Rx#: [id number] Heparin Sod,Pork in 0.45% 152 250.000 NaCl 25,000 unit In 0.45 % NaCl 1 250ml.bag @ 10. 021 UNITS/KG/HR 10 mls/hr IV .Q24H [facility] Rx#: [id number] Oral 480 50 100 Output: Urine 100 150 300 Other: Voiding Method Urinal Urinal # Voids 1 1 1 - Exam PHYSICAL EXAMINATION: GENERAL: 63-year-old gentleman, complaining of short of breath at the time of my examination HEENT: Head is atraumatic, normocephalic. Pupils equal, round. Sclera anicteric. Conjunctiva are clear. Mucous membranes of the mouth are moist. Neck is supple. There is no elevated jugular venous pressure. No carotid bruit is heard. HEART EXAMINATION: Heart S1 and S2 irregularly irregular CHEST EXAMINATION: Lungs reveal decreased air entry throughout, scattered wheezing throughout. ABDOMEN: Soft, nontender. Bowel sounds are heard. No organomegaly noted. EXTREMITIES: 2+ peripheral pulses with no evidence of peripheral edema and no calf tenderness noted. NEUROLOGIC [patient is awake, alert and oriented 3 - Labs CBC & Chem 7: 03/25/19 13:34 03/25/19 13:34 Labs: Abnormal Lab Results - Last 24 Hours (Table) 03/26/19 03/26/19 03/27/19 Range/Units 16:35 20:59 02:49 APTT 95.7 H (22.0-30.0) sec POC Glucose (mg/dL) 174 H 152 H (75-99) mg/dL 03/27/19 03/27/19 03/27/19 Range/Units 06:18 09:40 12:07 APTT 61.5 H (22.0-30.0) sec POC Glucose (mg/dL) 164 H 172 H (75-99) mg/dL Assessment and Plan Plan: Assessment and plan #1 symptoms of severe shortness of breath, wheezing, COPD exacerbation #2 atrial flutter with rapid ventricular response, secondary to COPD exacerbation #3 coronary artery disease with prior stent placements and myocardial infarction in 2001 #4 hypertension #5 hyperlipidemia #6 nicotine dependence history #7 severe COPD Plan We will discontinue the beta jon, start the patient on verapamil 240 mg daily, continue the Cardizem drip until the heart rate is stable. Patient will be scheduled for AYAKA and cardioversion on Saturday. DNP note has been reviewed, I agree with a documented findings and plan of care. Patient was seen and examined.
[2019-03-27] MEDS: SODIUM CHLORIDE 0.9% 1,000 ML IV SCH (15:42)
[2019-03-27 17:16] LABS: Glucose,Whole Blood 172 mg/dL (75-99)
--- NOTE | 2019-03-27 19:49 | P.PN ---
Subjective Progress Note Date: 03/27/19 Principal diagnosis: This is a 63 year old male that was admitted for COPD exacerbation and atrial fibrillation with RVR and is being closely monitored. Pulmonology is following this patient closely along with cardiology. Patient is sitting straight up in bed with moderated shortness of breath and states that he feels no better. Patient is 02 dependent and currently on 5L via [place]. Patient is currently still on the Cardizem drip but will be weaned off once rate controlled and verapamil will be started per cardiology. Patient denies any chest pain or fevers at this time. Objective - Vital Signs Vital signs: Vital Signs Temp 97.7 F 03/27/19 15:41 Pulse 68 03/27/19 18:58 Resp 20 03/27/19 15:41 BP 165/73 03/27/19 15:41 Pulse Ox 93 L 03/27/19 16:13 Intake & Output 03/27/19 03/27/19 03/28/19 06:59 18:59 06:59 Intake Total 425.000 540 Output Total 150 1150 Balance 275.000 -610 Weight 106 kg Intake: Intake, IV Titration 375.000 Amount Diltiazem 125 mg In 125.000 Sodium Chloride 0.9% 100 ml @ 15 MG/HR 15 mls/hr IV .Q8H20M [facility] Rx#: [id number] Heparin Sod,Pork in 0.45% 250.000 NaCl 25,000 unit In 0.45 % NaCl 1 250ml.bag @ 10. 021 UNITS/KG/HR 10 mls/hr IV .Q24H [facility] Rx#: [id number] Oral 50 540 Output: Urine 150 1150 Other: Voiding Method Urinal # Voids 1 1 - Exam On exam, the patient is alert and oriented and appears in mild acute distress with shortness of breath. Vital signs are blood pressure 138/73, pulse is 92 and irregular, respirations are 20 and labored, oxygen saturation is 92% on 5L via NC Heent: conjunctivae normal, EOMs intact Neck: supple, no lymph nodes noted, no JVD noted Cardiovascular: S1, S2 irregular, in afib with RVR Respiratory: breath sounds diminished with wheezing noted Abdomen: soft, non-tender, no masses noted Legs: no swelling or edema noted Nervous system: no focal deficits, gait is steady, patient becomes very winded with walking. Using a urinal due to shortness of breath Skin: dry, no rashes or lesions noted. - Labs CBC & Chem 7: 03/25/19 13:34 03/25/19 13:34 Labs: Abnormal Lab Results - Last 24 Hours (Table) 03/26/19 03/27/19 03/27/19 Range/Units 20:59 02:49 06:18 APTT 95.7 H (22.0-30.0) sec POC Glucose (mg/dL) 152 H 164 H (75-99) mg/dL 03/27/19 03/27/19 03/27/19 Range/Units 09:40 12:07 16:58 APTT 61.5 H (22.0-30.0) sec POC Glucose (mg/dL) 172 H 172 H (75-99) mg/dL Assessment and Plan Assessment: Shortness of breath: secondary to COPD exacerbation. Patient receiving i nhalation treatments and steroids. Lasix 40 mg BID was ordered. Atrial flutter: secondary to COPD exacerbation Acute hypercapnic respiratory failure secondary to COPD exacerbation Elevated D-dimer: CT angiogram of the chest is negative for pulmonary embolism but does show 3 right lower lobe pulmonary nodules noted to be measuring up to 8.2mm. Chronic hypercapnic respiratory failure with end-stage COPD. 02 dependent at 4L via NC at home. Currently on 5L via NC Coronary disease with stent placement in the past. current ejection fraction is 50-55% Hyperlipidemia Hypertension: patient is still on a Cardizem drip and will be started on Verapamil today. Recommendations and discussion: Recommend to continue current medication management as well as symptomatic management. Will continue to monitor closely. Patient will continue to receive inhalation treatements along with IV steroids. Per cardiology the plan is for AYAKA with cardioversion on Saturday once respiratory status has stabilized. Guarded prognosis. Further recommendations to follow.
[2019-03-27 21:12] LABS: Glucose,Whole Blood 155 mg/dL (75-99)
[2019-03-27] MEDS: FUROSEMIDE 10 MG/ML 4 ML VIAL IV SCH (21:52)
[2019-03-28] MEDS: methylPREDNISolone SOD SUCCI 125 MG/2 ML VIAL IV SCH ×4 (00:15→17:29)
[2019-03-28] MEDS: HEPARIN SOD,PORK IN 0.45% NACL 25,000 UNIT in 0.45% NACL 1 250ML.BAG IV SCH ×2 (03:40→21:30)
[2019-03-28] MEDS: IPRATROPIUM-ALBUTEROL 3 ML NEB INHALATION PRN (04:13)
[2019-03-28 06:38] LABS: Glucose,Whole Blood 155 mg/dL (75-99)
[2019-03-28] MEDS: DILTIAZEM 125 MG in SODIUM CHLORIDE 0.9% 100 ML IV SCH ×3 (06:47→18:32)
[2019-03-28] MEDS: INSULIN ASPART (NovoLOG) 100 UNIT/ML VIAL SQ SCH ×4 (06:48→21:28)
[2019-03-28 06:58] LABS: HCT 32.9 % (39.0-53.0); HGB 10.4 gm/dL (13.0-17.5); Hypochromasia Slight; MCH 31.9 pg (25.0-35.0); MCHC 31.5 g/dL (31.0-37.0); MCV 101.3 fL (80.0-100.0); Macrocytosis Slight; Mean Platelet Volume 7.3; Platelet Count 283 k/uL (150-450); RBC 3.25 m/uL (4.30-5.90); RDW 14.9 % (11.5-15.5); WBC 13.3 k/uL (3.8-10.6)
[2019-03-28 07:22] LABS: African American GFR (CKD) >90 (>60 ml/min/1.73 sqM); Anion Gap 6 mmol/L; Blood Urea Nitrogen 48 mg/dL (9-20); Calcium 9.4 mg/dL (8.4-10.2); Carbon Dioxide 37 mmol/L (22-30); Chloride 94 mmol/L (98-107); Glucose 152 mg/dL (74-99); Potassium 4.3 mmol/L (3.5-5.1); Sodium 137 mmol/L (137-145)
[2019-03-28] MEDS: FORMOTEROL FUMARATE 20 MCG/2 ML NEBU INHALATION SCH ×2 (07:52→20:53)
[2019-03-28] MEDS: BUDESONIDE 1 MG/2 ML NEBU INHALATION SCH ×2 (07:52→20:53)
[2019-03-28] MEDS: IPRATROPIUM-ALBUTEROL 3 ML NEB INHALATION SCH ×4 (07:52→20:53)
[2019-03-28] MEDS: TAMSULOSIN 0.4 MG CAP.ER.24H PO SCH (08:23)
[2019-03-28] MEDS: FUROSEMIDE 10 MG/ML 4 ML VIAL IV SCH ×2 (08:23→17:29)
[2019-03-28] MEDS: ASPIRIN 81 MG PO SCH (08:23)
[2019-03-28] MEDS: busPIRone HCl 10 MG TAB PO SCH ×2 (08:23→21:27)
[2019-03-28] MEDS: AMOXIC-POT CLAV 875-125MG 1 EACH TAB PO SCH ×2 (08:23→21:28)
[2019-03-28] MEDS: VERAPAMIL SR 240 MG TABLET.ER PO SCH (08:23)
[2019-03-28] MEDS: HYDROcodone/APAP 5-325MG 1 EACH TAB PO SCH ×2 (08:23→21:27)
--- NOTE | 2019-03-28 11:32 | P.PN ---
Subjective Progress Note Date: 03/28/19 Principal diagnosis: Acute exacerbation of chronic obstructive pulmonary disease complicated by tracheobronchitis/pneumonitis/alveolitis. The patient is seen today in follow-up on the selective care unit. He is currently awake and alert in no acute distress. He is sitting up at the bedside. He is still quite short of breath even with conversation. His lung function is 14% of predicted. His comp occasions with atrial fibrillation with rapid ventricular response. He remains on remains on DuoNeb inhalations, Pulmicort and Perforomist inhalations, IV Solu-Medrol. Empiric antibody accident form of Augmentin. a Cardizem drip. Currently on IV heparin. Continues with a loose nonproductive cough. Maintaining O2 saturations in the low 90s on 5 L/m per nasal cannula. Currently afebrile. Somewhat tachycardic. White count 13.3. Hemoglobin 10.4. Creatinine 0.99. Objective - Vital Signs Vital signs: Vital Signs Temp 97.6 F 03/28/19 08:00 Pulse 100 03/28/19 08:19 Resp 20 03/28/19 08:00 BP 117/67 03/28/19 08:00 Pulse Ox 93 L 03/28/19 08:00 Intake & Output 03/27/19 03/28/19 03/28/19 18:59 06:59 18:59 Intake Total 540 375 480 Output Total 1150 1450 575 Balance -610 -9425 -95 Weight 106.6 kg Intake: Intake, IV Titration 375 Amount Diltiazem 125 mg In 125 Sodium Chloride 0.9% 100 ml @ 15 MG/HR 15 mls/hr IV .Q8H20M [facility] Rx#: [id number] Heparin Sod,Pork in 0.45% 250 NaCl 25,000 unit In 0.45 % NaCl 1 250ml.bag @ 10. 021 UNITS/KG/HR 10 mls/hr IV .Q24H [facility] Rx#: [id number] Oral 540 480 Output: Urine 1150 1450 575 Other: Voiding Method Urinal # Voids 1 1 - Exam GENERAL EXAM: Alert, active, comfortable in no apparent distress. On 5 L nasal cannula. HEAD: Normocephalic. EYES: Normal reaction of pupils, equal size. NOSE: Clear with pink turbinates. THROAT: No erythema or exudates. NECK: No masses, no JVD. CHEST: No chest wall deformity. LUNGS: Equal air entry with bilateral end expiratory wheeze, scattered rhonchi. CVS: S1 and S2 normal with no audible murmur, irregular rhythm. ABDOMEN: No hepatosplenomegaly, normal bowel sounds, no guarding or rigidity. SPINE: No scoliosis or deformity SKIN: No rashes CENTRAL NERVOUS SYSTEM: No focal deficits, tone is normal in all 4 extremities. EXTREMITIES: There is no peripheral edema. No clubbing, no cyanosis. Peripheral pulses are intact. - Labs CBC & Chem 7: 03/28/19 06:23 03/28/19 06:23 Labs: Abnormal Lab Results - Last 24 Hours (Table) 03/27/19 03/27/19 03/27/19 Range/Units 12:07 16:58 21:10 WBC (3.8-10.6) k/uL RBC (4.30-5.90) m/uL Hgb (13.0-17.5) gm/dL Hct (39.0-53.0) % MCV (80.0-100.0) fL APTT (22.0-30.0) sec Chloride (98-107) mmol/L Carbon Dioxide (22-30) mmol/L BUN (9-20) mg/dL Glucose (74-99) mg/dL POC Glucose (mg/dL) 172 H 172 H 155 H (75-99) mg/dL 03/28/19 03/28/19 03/28/19 Range/Units 06:23 06:23 06:23 WBC 13.3 H (3.8-10.6) k/uL RBC 3.25 L (4.30-5.90) m/uL Hgb 10.4 L (13.0-17.5) gm/dL Hct 32.9 L (39.0-53.0) % MCV 101.3 H (80.0-100.0) fL APTT 50.1 H (22.0-30.0) sec Chloride 94 L (98-107) mmol/L Carbon Dioxide 37 H (22-30) mmol/L BUN 48 H (9-20) mg/dL Glucose 152 H (74-99) mg/dL POC Glucose (mg/dL) (75-99) mg/dL 03/28/19 Range/Units 06:36 WBC (3.8-10.6) k/uL RBC (4.30-5.90) m/uL Hgb (13.0-17.5) gm/dL Hct (39.0-53.0) % MCV (80.0-100.0) fL APTT (22.0-30.0) sec Chloride (98-107) mmol/L Carbon Dioxide (22-30) mmol/L BUN (9-20) mg/dL Glucose (74-99) mg/dL POC Glucose (mg/dL) 155 H (75-99) mg/dL Assessment and Plan Assessment: Impression: #1 Acute exacerbation of chronic obstructive pulmonary disease, complicated by acute tracheobronchitis/pneumonitis/alveolitis without melissa pneumonia. #2 Atrial fibrillation with rapid ventricular rates months, new onset, currently on IV heparin and IV Cardizem. #3 No evidence of pulmonary embolism. #4 Severe chronic obstructive pulmonary disease with FEV1 value of 14% of predicted. #5 History of hypertension. #6 Hyperlipidemia. #7 Coronary artery disease with previous stent placement. #8 History of heavy chronic tobacco dependence. #9 Lower extremity edema suspect cor pulmonale and secondary pulmonary h ypertension. Plan: The patient was seen and evaluated by Dr. Stapleton. He has been slow to progress. We'll continue with the current treatment plan for now. Continue with rate control. We'll consider long-term anticoagulant per cardiology. Increase his activity as tolerated. We'll continue to follow. I, the cosigning physician, performed a history & physical examination of the patient. Lungs sounds with bilateral end expiratory wheeze, few scattered rhonchi. Maintaining good O2 saturations in the 90s on 5 L/m per nasal cannula . I discussed the assessment and plan of care with my nurse practitioner, Yasemin Valencia. I attest to the above note as dictated by her.
[2019-03-28 12:16] LABS: Glucose,Whole Blood 150 mg/dL (75-99)
--- NOTE | 2019-03-28 12:17 | P.PN ---
Subjective 63 year old male that was admitted for COPD exacerbation and atrial fibrillation with RVR and is being closely monitored. Pulmonology is following this patient closely along with cardiology. Patient is sitting straight up in bed with moderated shortness of breath and states that he feels no better. Patient is 02 dependent and currently on 5L via [place]. Patient is currently still on the Cardizem drip but will be weaned off once rate controlled and verapamil will be started per cardiology. Patient denies any chest pain or fevers at this time 03/28/2019 Patient is failing good air entry into bilateral lung diamond but the still requiring oxygen patient was started on IV Lasix yesterday because of dilated IVC and the echocardiogram patient does have pedal edema patient mostly appears to have right-sided heart failure. Patient remains tachycardic patient is on Cardizem drip and is also on multiple oral medications were in spite of which his heart rate is not well controlled. Cardiology is planning on cardioversion on Saturday. Patient feels tired Constitutional: Denied any fatigue denied any fever. Cardio vascular: denied any chest pain, palpitations Gastrointestinal denied any nausea vomiting Pulmonary: Denied any shortness of breath cough Neurologic denied any new focal deficits All inpatient medications were reviewed and appropriate changes in these medications as dictated in the interval history and assessment and plan. Objective - Vital Signs Vital signs: Vital Signs Temp 97.6 F 03/28/19 08:00 Pulse 104 H 03/28/19 12:05 Resp 20 03/28/19 08:00 BP 117/67 03/28/19 08:00 Pulse Ox 93 L 03/28/19 08:00 Intake & Output 03/27/19 03/28/19 03/28/19 18:59 06:59 18:59 Intake Total 540 375 480 Output Total 1150 1450 575 Balance -610 -1075 -95 Weight 106.6 kg Intake: Intake, IV Titration 375 Amount Diltiazem 125 mg In 125 Sodium Chloride 0.9% 100 ml @ 15 MG/HR 15 mls/hr IV .Q8H20M [facility] Rx#: [id number] Heparin Sod,Pork in 0.45% 250 NaCl 25,000 unit In 0.45 % NaCl 1 250ml.bag @ 10. 021 UNITS/KG/HR 10 mls/hr IV .Q24H [facility] Rx#: [id number] Oral 540 480 Output: Urine 1150 1450 575 Other: Voiding Method Urinal # Voids 1 1 - Exam PHYSICAL EXAMINATION: GENERAL: The patient is alert and oriented x3, not in any acute distress. Obese HEENT: Pupils are round and equally reacting to light. EOMI. No scleral icterus. No conjunctival pallor. Normocephalic, atraumatic. No pharyngeal erythema. No thyromegaly. CARDIOVASCULAR: S1 and S2 present. No murmurs, rubs, or gallops. His have elevated JVD PULMONARY: Diminished air entry into bilateral lung diamond, better air entry compared to couple days ago ABDOMEN: Soft, nontender, nondistended, normoactive bowel sounds. No palpable organomegaly. MUSCULOSKELETAL: No joint swelling or deformity. EXTREMITIES: No cyanosis, clubbing, she does have bilateral pedal edema NEUROLOGICAL: Gross neurological examination did not reveal any focal deficits. SKIN: No rashes. - Labs CBC & Chem 7: 03/28/19 06:23 03/28/19 06:23 Labs: Abnormal Lab Results - Last 24 Hours (Table) 03/27/19 03/27/19 03/27/19 Range/Units 12:07 16:58 21:10 WBC (3.8-10.6) k/uL RBC (4.30-5.90) m/uL Hgb (13.0-17.5) gm/dL Hct (39.0-53.0) % MCV (80.0-100.0) fL APTT (22.0-30.0) sec Chloride (98-107) mmol/L Carbon Dioxide (22-30) mmol/L BUN (9-20) mg/dL Glucose (74-99) mg/dL POC Glucose (mg/dL) 172 H 172 H 155 H (75-99) mg/dL 03/28/19 03/28/19 03/28/19 Range/Units 06:23 06:23 06:23 WBC 13.3 H (3.8-10.6) k/uL RBC 3.25 L (4.30-5.90) m/uL Hgb 10.4 L (13.0-17.5) gm/dL Hct 32.9 L (39.0-53.0) % MCV 101.3 H (80.0-100.0) fL APTT 50.1 H (22.0-30.0) sec Chloride 94 L (98-107) mmol/L Carbon Dioxide 37 H (22-30) mmol/L BUN 48 H (9-20) mg/dL Glucose 152 H (74-99) mg/dL POC Glucose (mg/dL) (75-99) mg/dL 03/28/19 Range/Units 06:36 WBC (3.8-10.6) k/uL RBC (4.30-5.90) m/uL Hgb (13.0-17.5) gm/dL Hct (39.0-53.0) % MCV (80.0-100.0) fL APTT (22.0-30.0) sec Chloride (98-107) mmol/L Carbon Dioxide (22-30) mmol/L BUN (9-20) mg/dL Glucose (74-99) mg/dL POC Glucose (mg/dL) 155 H (75-99) mg/dL Assessment and Plan Plan: Shortness of breath: secondary to COPD exacerbation. Patient receiving inhalation treatments and steroids. Lasix 40 mg BID was ordered. Atrial flutter: secondary to COPD exacerbation, heart rate is not well controlled patient remains on IV Cardizem today patient will need cardioversion on Saturday Possible right-sided heart failure and possibility of chronic diastolic dysfunction with acute exacerbation Lasix as mentioned above Acute hypercapnic respiratory failure secondary to COPD exacerbation Elevated D-dimer: CT angiogram of the chest is negative for pulmonary embolism but does show 3 right lower lobe pulmonary nodules noted to be measuring up to 8.2mm. Chronic hypercapnic respiratory failure with end-stage COPD. 02 dependent at 4L via [place] at home. Currently on 5L via NC Coronary disease with stent placement in the past. current ejection fraction is 50-55% Hyperlipidemia Hypertension: patient is still on a Cardizem drip
[2019-03-28] MEDS: SODIUM CHLORIDE 0.9% 1,000 ML IV SCH (13:44)
--- NOTE | 2019-03-28 15:42 | P.PN ---
Subjective Progress Note Date: 04/04/19 his is a 63 old gentleman with a known case of ischemic heart disease and previous stent placement, hypertension, hyperlipidemia and severe COPD who was admitted to the hospital with atrial flutter with a rapid ventricular response. Patient has been on Cardizem. His BNP levels is intubated. He is chronically short of breath. Patient is on anticoagulations therapy. Cardizem drip to be continued. It is planned that patient would have cardioversion and AYAKA on Saturday. We will continue current medical therapy. His lab values showed white count of 13,000. His creatinine is normal. Hemoglobin was 10.4:. His heart rate is about 90 to 104. Objective - Vital Signs Vital signs: Vital Signs Temp 97.6 F 03/28/19 08:00 Pulse 92 03/28/19 15:24 Resp 22 03/28/19 12:00 BP 113/57 03/28/19 12:00 Pulse Ox 94 L 03/28/19 15:14 Intake & Output 03/27/19 03/28/19 03/28/19 18:59 06:59 18:59 Intake Total 540 375 480 Output Total 1150 1450 575 Balance -610 -1075 -95 Weight 106.6 kg Intake: Intake, IV Titration 375 Amount Diltiazem 125 mg In 125 Sodium Chloride 0.9% 100 ml @ 15 MG/HR 15 mls/hr IV .Q8H20M [facility] Rx#: [id number] Heparin Sod,Pork in 0.45% 250 NaCl 25,000 unit In 0.45 % NaCl 1 250ml.bag @ 10. 021 UNITS/KG/HR 10 mls/hr IV .Q24H [facility] Rx#: [id number] Oral 540 480 Output: Urine 1150 1450 575 Other: Voiding Method Urinal # Voids 1 1 - Exam GENERAL EXAM: Patient is alert and oriented and appears to be in moderate distress HEENT: Normocephalic. Normal reaction of pupils, equal size, normal range of extraocular motion. No erythema or exudates in the throat. NECK: No masses, no nuchal rigidity. CHEST: No chest wall deformity. LUNGS: diffuse wheezing and rhonchi HEART: irregular heart sound and distant sounds ABDOMEN: No hepatosplenomegaly, normal bowel sounds, no guarding or rigidity. SKIN: No rashes CENTRAL NERVOUS SYSTEM: No focal deficits. EXTREMITIES: mild edema - Labs CBC & Chem 7: 03/28/19 06:23 03/28/19 06:23 Labs: Abnormal Lab Results - Last 24 Hours (Table) 03/27/19 03/27/19 03/28/19 Range/Units 16:58 21:10 06:23 WBC (3.8-10.6) k/uL RBC (4.30-5.90) m/uL Hgb (13.0-17.5) gm/dL Hct (39.0-53.0) % MCV (80.0-100.0) fL APTT 50.1 H (22.0-30.0) sec Chloride (98-107) mmol/L Carbon Dioxide (22-30) mmol/L BUN (9-20) mg/dL Glucose (74-99) mg/dL POC Glucose (mg/dL) 172 H 155 H (75-99) mg/dL 03/28/19 03/28/19 03/28/19 Range/Units 06:23 06:23 06:36 WBC 13.3 H (3.8-10.6) k/uL RBC 3.25 L (4.30-5.90) m/uL Hgb 10.4 L (13.0-17.5) gm/dL Hct 32.9 L (39.0-53.0) % MCV 101.3 H (80.0-100.0) fL APTT (22.0-30.0) sec Chloride 94 L (98-107) mmol/L Carbon Dioxide 37 H (22-30) mmol/L BUN 48 H (9-20) mg/dL Glucose 152 H (74-99) mg/dL POC Glucose (mg/dL) 155 H (75-99) mg/dL 03/28/19 Range/Units 11:33 WBC (3.8-10.6) k/uL RBC (4.30-5.90) m/uL Hgb (13.0-17.5) gm/dL Hct (39.0-53.0) % MCV (80.0-100.0) fL APTT (22.0-30.0) sec Chloride (98-107) mmol/L Carbon Dioxide (22-30) mmol/L BUN (9-20) mg/dL Glucose (74-99) mg/dL POC Glucose (mg/dL) 150 H (75-99) mg/dL Assessment and Plan (1) Atrial flutter with rapid ventricular response Current Visit: Yes Status: Acute Code(s): I48.92 - UNSPECIFIED ATRIAL FLUTTER SNOMED Code(s): 4543636 (2) COPD (chronic obstructive pulmonary disease) Current Visit: Yes Status: Acute Code(s): J44.9 - CHRONIC OBSTRUCTIVE PULMONARY DISEASE, UNSPECIFIED SNOMED Code(s): 61292206 Plan: continue IV Cardizem to control his heart rate. AYAKA and cardioversion planned for Saturday. 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
[2019-03-28 17:12] LABS: Glucose,Whole Blood 167 mg/dL (75-99)
[2019-03-28 20:33] LABS: Glucose,Whole Blood 143 mg/dL (75-99)
[2019-03-28] MEDS: MELATONIN 5 MG TABLET PO SCH (21:27)
[2019-03-29] MEDS: methylPREDNISolone SOD SUCCI 125 MG/2 ML VIAL IV SCH ×4 (00:15→16:54)
[2019-03-29 06:34] LABS: Glucose,Whole Blood 160 mg/dL (75-99)
[2019-03-29 06:36] LABS: African American GFR (CKD) >90 (>60 ml/min/1.73 sqM); Anion Gap 7 mmol/L; Blood Urea Nitrogen 54 mg/dL (9-20); Calcium 9.1 mg/dL (8.4-10.2); Carbon Dioxide 38 mmol/L (22-30); Chloride 92 mmol/L (98-107); Glucose 142 mg/dL (74-99); Potassium 4.1 mmol/L (3.5-5.1); Sodium 137 mmol/L (137-145)
[2019-03-29] MEDS: INSULIN ASPART (NovoLOG) 100 UNIT/ML VIAL SQ SCH ×4 (06:56→17:58)
[2019-03-29] MEDS: FUROSEMIDE 10 MG/ML 4 ML VIAL IV SCH ×2 (06:56→08:44)
[2019-03-29] MEDS: IPRATROPIUM-ALBUTEROL 3 ML NEB INHALATION SCH ×4 (08:17→19:17)
[2019-03-29] MEDS: FORMOTEROL FUMARATE 20 MCG/2 ML NEBU INHALATION SCH ×2 (08:17→19:17)
[2019-03-29] MEDS: BUDESONIDE 1 MG/2 ML NEBU INHALATION SCH ×2 (08:17→19:17)
[2019-03-29] MEDS: DILTIAZEM 125 MG in SODIUM CHLORIDE 0.9% 100 ML IV SCH (08:28)
[2019-03-29] MEDS: VERAPAMIL SR 240 MG TABLET.ER PO SCH (08:43)
[2019-03-29] MEDS: busPIRone HCl 10 MG TAB PO SCH ×2 (08:43→23:17)
[2019-03-29] MEDS: HYDROcodone/APAP 5-325MG 1 EACH TAB PO SCH ×2 (08:43→23:18)
[2019-03-29] MEDS: AMOXIC-POT CLAV 875-125MG 1 EACH TAB PO SCH ×2 (08:43→23:17)
[2019-03-29] MEDS: TAMSULOSIN 0.4 MG CAP.ER.24H PO SCH (08:43)
[2019-03-29] MEDS: ASPIRIN 81 MG PO SCH (08:44)
--- NOTE | 2019-03-29 11:05 | PN ---
PROGRESS NOTE DATE OF SERVICE: March 29, 2019 This is a 63-year-old gentleman with a history of severe COPD. FEV1 is 14% of predicted. He came in with a COPD exacerbation complicated by acute tracheobronchitis/pneumonitis/alveolitis. The patient clinically is doing about the same. Unfortunately, his hospitalization has been complicated by new onset atrial fibrillation with RVR. There was no evidence of pulmonary embolism on CT angiogram. He has a history of hypertension, hyperlipidemia, CAD with previous stent placement, previous history of heavy and chronic tobacco dependence and lower extremity edema secondary to cor pulmonale and pulmonary hypertension. The patient is sitting up at the bedside. He is wearing oxygen. He states he feels about the same. PHYSICAL EXAMINATION: VITAL SIGNS: Current vital signs are reviewed. Temperature is 98.2. Heart rate 98, respiratory rate 22, blood pressure 160/95, mean 16. 5 L saturation is 95%. GENERAL: Appears in no acute distress. HEENT examination is grossly unremarkable. Mucous membranes are moist. No oral lesions. Nasal O2 noted. NECK: Supple. Full range of motion. No adenopathy, thyromegaly or neck vein distention. CARDIOVASCULAR examination reveals regular rhythm rate. Heart rate about 90 beats per minute. S1, S2 normal. No S3, S4, or murmur. The patient appears to be in sinus rhythm at this time. LUNGS: Reveal severely diminished breath sounds. A few scattered rhonchi and wheezes. No crackles. Slight prolongation on forced maneuver. Adventitious lung sounds are more prominent on forced maneuver. ABDOMEN: Soft, but obese. Bowel sounds are heard. EXTREMITIES are intact. No cyanosis, clubbing, or significant edema. He does have a little bit of edema, but it has improved. Skin without rash. NEUROLOGIC examination is brief but nonfocal. LABS: Reviewed. PTT 62.1. Sodium 137, potassium 4.1, chloride 92, CO2 38, BUN and creatinine were 54 and 0.97. Anion gap is 7. Calcium is 9.1. No new x-rays to report. Microbiologic studies are negative. Medications are reviewed. He is on all the usual medications including albuterol/Atrovent/Pulmicort/formoterol/systemic corticosteroids/oral antibiotics. ASSESSMENT: 1. Acute hypoxemic respiratory failure secondary to chronic obstructive pulmonary disease exacerbation, complicated by acute tracheobronchitis/pneumonitis/alveolitis. 2. New onset atrial fibrillation with rapid ventricular rate, currently on IV Cardizem and IV heparin. 3. No evidence of pulmonary embolism on CT angiogram. 4. Severe chronic obstructive pulmonary disease with an FEV1 that is 14% of predicted. 5. History of benign essential hypertension. 6. Hyperlipidemia. 7. Coronary artery disease with previous stent placement. 8. History of heavy and chronic tobacco dependence. 9. Cor pulmonale with pulmonary hypertension and lower extremity edema. PLAN: The patient is receiving maximal medical therapy. He has improved only slightly. We will continue to treat the patient. He is realistic about the fact that the COPD is quite severe. He understands that he has a portable lung function. No additional recommendations are made. We will continue to follow and treat. VIRI / REAL: [id number] /
[2019-03-29 11:52] LABS: Glucose,Whole Blood 166 mg/dL (75-99)
[2019-03-29] MEDS: SODIUM CHLORIDE 0.9% 1,000 ML IV SCH (12:07)
--- NOTE | 2019-03-29 12:19 | P.PN ---
Subjective Patient is seen and examined laying down resting in no acute distress. He continues to feel short of breath with no real improvement from previous exam. He denies chest discomfort, dizziness or palpitations. Telemetry tracings reviewed and reveal he converted to sinus mechanism spontaneously. Blood pressure 160/95 heart rate 110 afebrile maintaining oxygen saturation on nasal cannula. GENERAL: Well-appearing, well-nourished and in no acute distress. NECK: Supple without JVD or thyromegaly. LUNGS: Scattered rhonci and faint wheezes. HEART: Regular rate and rhythm without murmurs, rubs or gallops. S1 and S2 heard. EXTREMITIES: Normal range of motion, trace bilateral lower extremity less then 1+ pitting edema. No clubbing or cyanosis. Peripheral pulses intact. ASSESSMENT Atrial flutter with rapid ventricular response, resolved patient has spontaneously converted back to sinus mechanism COPD Coronary artery disease status post stent placement in 2001 Hypertension Dyslipidemia PLAN Discontinue Cardizem infusion and increase verapamil to 480 mg daily. Initiate on Eliquis 5 mg twice a day. We will check for coverage tomorrow when the pharmacy opens. Ongoing telemetry monitoring. Nurse Practitioner note has been reviewed, I agree with a documented findings and plan of care. Patient was seen and examined. Objective - Vital Signs Vital signs: Vital Signs Temp 98.2 F 03/29/19 00:00 Pulse 108 H 03/29/19 11:59 Resp 22 03/29/19 08:00 BP 160/95 03/29/19 08:00 Pulse Ox 93 L 03/29/19 08:00 Intake & Output 03/28/19 03/29/19 03/29/19 18:59 06:59 18:59 Intake Total 845 249.524 120 Output Total 675 650 675 Balance 170 -400.476 -555 Weight 105.9 kg Intake: Intake, IV Titration 125 249.524 Amount Diltiazem 125 mg In 125 Sodium Chloride 0.9% 100 ml @ 15 MG/HR 15 mls/hr IV .Q8H20M [facility] Rx#: [id number] Heparin Sod,Pork in 0.45% 249.524 NaCl 25,000 unit In 0.45 % NaCl 1 250ml.bag @ 10. 021 UNITS/KG/HR 10 mls/hr IV .Q24H [facility] Rx#: [id number] Oral 720 120 Output: Urine 675 650 675 Other: Voiding Method Urinal # Voids 1 1 - Labs CBC & Chem 7: 03/28/19 06:23 03/29/19 05:36 Labs: Abnormal Lab Results - Last 24 Hours (Table) 03/28/19 03/28/19 03/28/19 Range/Units 11:33 16:53 20:31 APTT (22.0-30.0) sec Chloride (98-107) mmol/L Carbon Dioxide (22-30) mmol/L BUN (9-20) mg/dL Glucose (74-99) mg/dL POC Glucose (mg/dL) 150 H 167 H 143 H (75-99) mg/dL 03/29/19 03/29/19 03/29/19 Range/Units 05:36 05:36 06:32 APTT 62.1 H (22.0-30.0) sec Chloride 92 L (98-107) mmol/L Carbon Dioxide 38 H (22-30) mmol/L BUN 54 H (9-20) mg/dL Glucose 142 H (74-99) mg/dL POC Glucose (mg/dL) 160 H (75-99) mg/dL 03/29/19 Range/Units 11:36 APTT (22.0-30.0) sec Chloride (98-107) mmol/L Carbon Dioxide (22-30) mmol/L BUN (9-20) mg/dL Glucose (74-99) mg/dL POC Glucose (mg/dL) 166 H (75-99) mg/dL
--- NOTE | 2019-03-29 13:46 | P.PN ---
Subjective 63 year old male that was admitted for COPD exacerbation and atrial fibrillation with RVR and is being closely monitored. Pulmonology is following this patient closely along with cardiology. Patient is sitting straight up in bed with moderated shortness of breath and states that he feels no better. Patient is 02 dependent and currently on 5L via NC. Patient is currently still on the Cardizem drip but will be weaned off once rate controlled and verapamil will be started per cardiology. Patient denies any chest pain or fevers at this time 03/28/2019 Patient is failing good air entry into bilateral lung diamond but the still requiring oxygen patient was started on IV Lasix yesterday because of dilated IVC and the echocardiogram patient does have pedal edema patient mostly appears to have right-sided heart failure. Patient remains tachycardic patient is on Cardizem drip and is also on multiple oral medications were in spite of which his heart rate is not well controlled. Cardiology is planning on cardioversion on Saturday. Patient feels tired. 03/29/2019 Patient is feeling bit better today patient is sinus rhythm but still sinus tac hycardia. Cardizem was discontinued. Lasix will be switched to oral. Patient is still on 5 L of oxygen his overall prognosis poor Constitutional: Denied any fatigue denied any fever. Cardio vascular: denied any chest pain, palpitations Gastrointestinal denied any nausea vomiting Pulmonary: Denied any shortness of breath cough Neurologic denied any new focal deficits All inpatient medications were reviewed and appropriate changes in these medications as dictated in the interval history and assessment and plan. Objective - Vital Signs Vital signs: Vital Signs Temp 98.2 F 03/29/19 00:00 Pulse 107 H 03/29/19 12:00 Resp 20 03/29/19 12:00 BP 142/83 03/29/19 12:00 Pulse Ox 90 L 03/29/19 12:00 Intake & Output 03/28/19 03/29/19 03/29/19 18:59 06:59 18:59 Intake Total 845 249.524 120 Output Total 675 650 675 Balance 170 -400.476 -555 Weight 105.9 kg Intake: Intake, IV Titration 125 249.524 Amount Diltiazem 125 mg In 125 Sodium Chloride 0.9% 100 ml @ 15 MG/HR 15 mls/hr IV .Q8H20M [facility] Rx#: [id number] Heparin Sod,Pork in 0.45% 249.524 NaCl 25,000 unit In 0.45 % NaCl 1 250ml.bag @ 10. 021 UNITS/KG/HR 10 mls/hr IV .Q24H [facility] Rx#: [id number] Oral 720 120 Output: Urine 675 650 675 Other: Voiding Method Urinal # Voids 1 1 - Exam PHYSICAL EXAMINATION: GENERAL: The patient is alert and oriented x3, not in any acute distress. Obese HEENT: Pupils are round and equally reacting to light. EOMI. No scleral icterus. No conjunctival pallor. Normocephalic, atraumatic. No pharyngeal erythema. No thyromegaly. CARDIOVASCULAR: S1 and S2 present. No murmurs, rubs, or gallops. His have elevated JVD PULMONARY: Diminished air entry into bilateral lung diamond, better air entry compared to couple days ago ABDOMEN: Soft, nontender, nondistended, normoactive bowel sounds. No palpable organomegaly. MUSCULOSKELETAL: No joint swelling or deformity. EXTREMITIES: No cyanosis, clubbing, or pedal edema did improve NEUROLOGICAL: Gross neurological examination did not reveal any focal deficits. SKIN: No rashes. - Labs CBC & Chem 7: 03/28/19 06:23 03/29/19 05:36 Labs: Abnormal Lab Results - Last 24 Hours (Table) 03/28/19 03/28/19 03/29/19 Range/Units 16:53 20:31 05:36 APTT 62.1 H (22.0-30.0) sec Chloride (98-107) mmol/L Carbon Dioxide (22-30) mmol/L BUN (9-20) mg/dL Glucose (74-99) mg/dL POC Glucose (mg/dL) 167 H 143 H (75-99) mg/dL 03/29/19 03/29/19 03/29/19 Range/Units 05:36 06:32 11:36 APTT (22.0-30.0) sec Chloride 92 L (98-107) mmol/L Carbon Dioxide 38 H (22-30) mmol/L BUN 54 H (9-20) mg/dL Glucose 142 H (74-99) mg/dL POC Glucose (mg/dL) 160 H 166 H (75-99) mg/dL Assessment and Plan Plan: Shortness of breath: secondary to COPD exacerbation. Patient receiving inhalation treatments and steroids. Patient was switched to oral Lasix Atrial flutter: secondary to COPD exacerbation, patient is presently sinus rhythm but sinus tachycardia Possible right-sided heart failure and possibility of chronic diastolic dysfunction with acute exacerbation Lasix as mentioned above Acute hypercapnic respiratory failure secondary to COPD exacerbation Elevated D-dimer: CT angiogram of the chest is negative for pulmonary embolism but does show 3 right lower lobe pulmonary nodules noted to be measuring up to 8.2mm. Chronic hypercapnic respiratory failure with end-stage COPD. 02 dependent at 4L via NC at home. Currently on 5L via NC Coronary disease with stent placement in the past. current ejection fraction is 50-55% Hyperlipidemia Hypertension:
[2019-03-29 16:50] LABS: Glucose,Whole Blood 162 mg/dL (75-99)
[2019-03-29] MEDS: FUROSEMIDE 40 MG TAB PO SCH (16:54)
[2019-03-29 17:30] LABS: ABG Base Excess 14.2 mmol/L; ABG Oxygen Saturation 88.4 % (94-97); ABG PH 7.31 (7.35-7.45); ABG TCO2 43 mmol/L (19-24); Allen Test Performed? Yes
[2019-03-29 17:36] LABS: ABG PCO2 80 mmHg (35-45); ABG PO2 59 mmHg (83-108)
[2019-03-29 17:37] LABS: ABG HCO3 40 mmol/L (21-25)
[2019-03-29] MEDS: LORazepam 2 MG/ML INJ IV PRN (18:57)
[2019-03-29] MEDS ORDERED: HEPARIN SOD,PORK IN 0.45% NACL 25,000 UNIT in 0.45% NACL 1 250ML.BAG IV SCH (19:45)
[2019-03-29] MEDS ORDERED: APIXABAN 5 MG TAB PO SCH (21:00)
[2019-03-29 21:35] LABS: Glucose,Whole Blood 167 mg/dL (75-99)
[2019-03-29] MEDS ORDERED: DILTIAZEM 125 MG in SODIUM CHLORIDE 0.9% 100 ML IV SCH (23:00)
[2019-03-29 23:07] LABS: ABG Base Excess 14.7 mmol/L; ABG Oxygen Saturation 92.4 % (94-97); ABG PH 7.27 (7.35-7.45); ABG PO2 70 mmHg (83-108); ABG TCO2 44 mmol/L (19-24); Allen Test Performed? Yes
[2019-03-29 23:09] LABS: ABG HCO3 42 mmol/L (21-25); ABG PCO2 90 mmHg (35-45)
[2019-03-29] MEDS ORDERED: LACTATED RINGERS 1,000 ML IV SCH (23:10)
[2019-03-29] MEDS ORDERED: LIDOCAINE 1% 20 ML VIAL (10MG/ML) FOR IV START INTRADERMA PRN (23:10)
[2019-03-29] MEDS: MELATONIN 5 MG TABLET PO SCH (23:18)
[2019-03-29 23:23] LABS: Basophils % (A) 0 %; Eosinophils % (A) 0 %; HCT 32.2 % (39.0-53.0); Lymphocytes # (A) 0.2 k/uL (1.0-4.8); Lymphocytes % (A) 3 %; MCH 31.4 pg (25.0-35.0); MCHC 31.1 g/dL (31.0-37.0); MCV 100.9 fL (80.0-100.0); Macrocytosis Slight; Mean Platelet Volume 7.3; Monocytes # (A) 0.4 k/uL (0-1.0); Monocytes % (A) 5 %; Neutrophils # (A) 7.9 k/uL (1.3-7.7); Neutrophils % (A) 92 %; Platelet Count 230 k/uL (150-450); RBC 3.19 m/uL (4.30-5.90); RDW 14.2 % (11.5-15.5); WBC 8.6 k/uL (3.8-10.6)
[2019-03-29 23:33] LABS: African American GFR (CKD) >90 (>60 ml/min/1.73 sqM); Anion Gap 6 mmol/L; Blood Urea Nitrogen 54 mg/dL (9-20); Calcium 8.8 mg/dL (8.4-10.2); Carbon Dioxide 36 mmol/L (22-30); Chloride 93 mmol/L (98-107); Glucose 182 mg/dL (74-99); Magnesium 2.5 mg/dL (1.6-2.3); Sodium 135 mmol/L (137-145)
[2019-03-29 23:39] LABS: Potassium 4.5 mmol/L (3.5-5.1)
[2019-03-29] MEDS: IPRATROPIUM-ALBUTEROL 3 ML NEB INHALATION PRN (23:57)
[2019-03-30 00:09] LABS: Glucose,Whole Blood 171 mg/dL (75-99)
[2019-03-30] MEDS: INSULIN ASPART (NovoLOG) 100 UNIT/ML VIAL SQ SCH ×5 (00:10→23:59)
[2019-03-30] MEDS: methylPREDNISolone SOD SUCCI 125 MG/2 ML VIAL IV SCH ×5 (00:33→23:59)
[2019-03-30 01:07] LABS: Allen Test Performed? Yes
[2019-03-30 01:18] LABS: ABG PH 7.34 (7.35-7.45)
[2019-03-30 01:19] LABS: ABG PCO2 78 mmHg (35-45); ABG PO2 64 mmHg (83-108)
[2019-03-30 01:20] LABS: ABG Base Excess 16.2 mmol/L; ABG HCO3 42 mmol/L (21-25); ABG TCO2 44 mmol/L (19-24)
[2019-03-30] MEDS: IPRATROPIUM-ALBUTEROL 3 ML NEB INHALATION PRN ×2 (03:37→23:00)
[2019-03-30 04:48] LABS: Basophils % (A) 0 %; Eosinophils % (A) 0 %; HCT 31.2 % (39.0-53.0); HGB 9.7 gm/dL (13.0-17.5); Lymphocytes # (A) 0.2 k/uL (1.0-4.8); Lymphocytes % (A) 3 %; MCH 31.4 pg (25.0-35.0); MCHC 31.2 g/dL (31.0-37.0); MCV 100.9 fL (80.0-100.0); Macrocytosis Slight; Monocytes # (A) 0.3 k/uL (0-1.0); Monocytes % (A) 4 %; Neutrophils # (A) 7.1 k/uL (1.3-7.7); Neutrophils % (A) 92 %; Platelet Count 235 k/uL (150-450); RBC 3.09 m/uL (4.30-5.90); RDW 14.2 % (11.5-15.5); WBC 7.8 k/uL (3.8-10.6)
[2019-03-30 04:57] LABS: African American GFR (CKD) >90 (>60 ml/min/1.73 sqM); Anion Gap 5 mmol/L; Blood Urea Nitrogen 47 mg/dL (9-20); Calcium 8.8 mg/dL (8.4-10.2); Chloride 93 mmol/L (98-107); Glucose 150 mg/dL (74-99); Potassium 4.2 mmol/L (3.5-5.1); Sodium 138 mmol/L (137-145)
[2019-03-30] MEDS ORDERED: NALOXONE 0.4 MG/ML 1 ML VIAL IV PRN (05:06)
[2019-03-30 05:36] LABS: Carbon Dioxide 38 mmol/L (22-30)
[2019-03-30 06:04] LABS: Allen Test Performed? Yes
[2019-03-30 06:10] LABS: Glucose,Whole Blood 170 mg/dL (75-99)
[2019-03-30 06:10] LABS: ABG Base Excess 17.3 mmol/L; ABG Oxygen Saturation 93.4 % (94-97); ABG PH 7.35 (7.35-7.45); ABG PO2 69 mmHg (83-108); ABG TCO2 45 mmol/L (19-24)
[2019-03-30 06:13] LABS: ABG PCO2 78 mmHg (35-45)
[2019-03-30 06:14] LABS: ABG HCO3 43 mmol/L (21-25)
[2019-03-30] MEDS: IPRATROPIUM-ALBUTEROL 3 ML NEB INHALATION SCH ×4 (07:41→19:43)
[2019-03-30] MEDS: FORMOTEROL FUMARATE 20 MCG/2 ML NEBU INHALATION SCH ×2 (07:41→19:43)
[2019-03-30] MEDS: BUDESONIDE 1 MG/2 ML NEBU INHALATION SCH ×2 (07:41→19:43)
[2019-03-30] MEDS: PANTOPRAZOLE 40 MG/10 ML VIAL IV SCH (09:09)
[2019-03-30] MEDS: TAMSULOSIN 0.4 MG CAP.ER.24H PO SCH (09:09)
[2019-03-30] MEDS: ASPIRIN 81 MG PO SCH (09:09)
[2019-03-30] MEDS: FUROSEMIDE 40 MG TAB PO SCH ×2 (09:09→17:04)
[2019-03-30] MEDS: HYDROcodone/APAP 5-325MG 1 EACH TAB PO SCH ×2 (09:09→21:09)
--- NOTE | 2019-03-30 09:48 | P.PN ---
Subjective Progress Note Date: 03/30/19 Principal diagnosis: Hypoxemic respiratory failure secondary to chronic obstructive pulmonary disease exacerbation of acute by tracheobronchitis/pneumonitis alveolitis On 03/30/2019 patient seen in follow-up in the intensive care unit, he is currently on BiPAP support with pressures of 12 and 5, and FiO2 of 35%, his pulse ox is 93%, hemodynamically stable, lung sounds are diminished, with end expiratory wheezing, patient's tidal volumes are over 900 ML. Patient is complaining of nasal stuffiness, and is feeling extremely thirsty, otherwise no distress, we are unable to look at the chest x-ray this morning, as the synapse system is down. Clinically patient is stable, we will try to give him a trial of high flow nasal cannula. Today's labs have been reviewed, showing white blood cell, 7.8, hemoglobin of 9.7, sodium 138, potassium is 4.2, chloride is 93, CO2 38, BUN is 47, creatinine of 0.84. This morning's blood gas showed pO2 of 69, pCO2 of 78, pH of 7.35, this was done on FiO2 of 35%. Patient continues on oral antibiotics in the form of Augmentin, nebulized bronchodilators, IV steroids and a Pulmicort and Perforomist. Shortly after patient was placed on nasal cannula at 5 L. Shortly after he was placed on nasal cannula desaturating and his pulse ox is 77%, and patient will be placed on Airvo. Objective - Vital Signs Vital signs: Vital Signs Temp 98.5 F 03/30/19 08:00 Pulse 108 H 03/30/19 08:17 Resp 16 03/30/19 08:00 BP 137/83 03/30/19 08:00 Pulse Ox 93 L 03/30/19 08:00 Intake & Output 03/29/19 03/30/19 03/30/19 18:59 06:59 18:59 Intake Total 120 140 40 Output Total 2275 1495 175 Balance -9655 -0255 -135 Intake: IV 140 40 Sodium Chloride 0.9% 1, 140 40 000 ml @ 20 mls/hr IV . Q24H [facility] Rx#:[id number] Oral 120 Output: Urine 2275 1495 175 Straight 600 Other: Voiding Method Indwelling Catheter # Voids 1 - Exam GENERAL EXAM: Alert, wasn't, 63-year-old white male, on BiPAP support, with pressures of 12 and 5, and FiO2 of 30% comfortable in no apparent distress. HEAD: Normocephalic/atraumatic. EYES: Normal reaction of pupils, equal size. Conjunctiva pink, sclera white. NOSE: Clear with pink turbinates. THROAT: No erythema or exudates. NECK: No masses, no JVD, no thyroid enlargement, no adenopathy. CHEST: No chest wall deformity. Symmetrical expansion. LUNGS: Equal air entry with diminished breath sounds with end expiratory wheezes CVS: Regular rate and rhythm, normal S1 and S2, no gallops, no murmurs, no rubs ABDOMEN: Soft, nontender. No hepatosplenomegaly, normal bowel sounds, no guarding or rigidity. EXTREMITIES: No clubbing, no edema, no cyanosis, 2+ pulses and upper and lower extremities. MUSCULOSKELETAL: Muscle strength and tone normal. SPINE: No scoliosis or deformity SKIN: No rashes CENTRAL NERVOUS SYSTEM: Alert and oriented -3. No focal deficits, tone is normal in all 4 extremities. PSYCHIATRIC: Alert and oriented -3. Appropriate affect. Intact judgment and insight. - Labs CBC & Chem 7: 03/30/19 04:16 03/30/19 04:16 Labs: Abnormal Lab Results - Last 24 Hours (Table) 03/29/19 03/29/19 03/29/19 Range/Units 11:36 16:36 17:27 RBC (4.30-5.90) m/uL Hgb (13.0-17.5) gm/dL Hct (39.0-53.0) % MCV (80.0-100.0) fL Neutrophils # (1.3-7.7) k/uL Lymphocytes # (1.0-4.8) k/uL APTT (22.0-30.0) sec ABG pH 7.31 L (7.35-7.45) ABG pCO2 80 H* (35-45) mmHg ABG pO2 59 L* (83-108) mmHg ABG HCO3 40 H* (21-25) mmol/L ABG Total CO2 43 H (19-24) mmol/L ABG O2 Saturation 88.4 L (94-97) % Sodium (137-145) mmol/L Chloride (98-107) mmol/L Carbon Dioxide (22-30) mmol/L BUN (9-20) mg/dL Glucose (74-99) mg/dL POC Glucose (mg/dL) 166 H 162 H (75-99) mg/dL Magnesium (1.6-2.3) mg/dL 03/29/19 03/29/19 03/29/19 Range/Units 21:23 22:59 23:04 RBC 3.19 L (4.30-5.90) m/uL Hgb 10.0 L (13.0-17.5) gm/dL Hct 32.2 L (39.0-53.0) % MCV 100.9 H (80.0-100.0) fL Neutrophils # 7.9 H (1.3-7.7) k/uL Lymphocytes # 0.2 L (1.0-4.8) k/uL APTT (22.0-30.0) sec ABG pH 7.27 L (7.35-7.45) ABG pCO2 90 H* (35-45) mmHg ABG pO2 70 L (83-108) mmHg ABG HCO3 42 H* (21-25) mmol/L ABG Total CO2 44 H (19-24) mmol/L ABG O2 Saturation 92.4 L (94-97) % Sodium (137-145) mmol/L Chloride (98-107) mmol/L Carbon Dioxide (22-30) mmol/L BUN (9-20) mg/dL Glucose (74-99) mg/dL POC Glucose (mg/dL) 167 H (75-99) mg/dL Magnesium (1.6-2.3) mg/dL 03/29/19 03/29/19 03/30/19 Range/Units 23:04 23:55 01:05 RBC (4.30-5.90) m/uL Hgb (13.0-17.5) gm/dL Hct (39.0-53.0) % MCV (80.0-100.0) fL Neutrophils # (1.3-7.7) k/uL Lymphocytes # (1.0-4.8) k/uL APTT (22.0-30.0) sec ABG pH 7.34 L (7.35-7.45) ABG pCO2 78 H* (35-45) mmHg ABG pO2 64 L (83-108) mmHg ABG HCO3 42 H* (21-25) mmol/L ABG Total CO2 44 H (19-24) mmol/L ABG O2 Saturation 92.0 L (94-97) % Sodium 135 L (137-145) mmol/L Chloride 93 L (98-107) mmol/L Carbon Dioxide 36 H (22-30) mmol/L BUN 54 H (9-20) mg/dL Glucose 182 H (74-99) mg/dL POC Glucose (mg/dL) 171 H (75-99) mg/dL Magnesium 2.5 H (1.6-2.3) mg/dL 03/30/19 03/30/19 03/30/19 Range/Units 04:16 04:16 04:16 RBC 3.09 L (4.30-5.90) m/uL Hgb 9.7 L (13.0-17.5) gm/dL Hct 31.2 L (39.0-53.0) % MCV 100.9 H (80.0-100.0) fL Neutrophils # (1.3-7.7) k/uL Lymphocytes # 0.2 L (1.0-4.8) k/uL APTT 64.7 H (22.0-30.0) sec ABG pH (7.35-7.45) ABG pCO2 (35-45) mmHg ABG pO2 (83-108) mmHg ABG HCO3 (21-25) mmol/L ABG Total CO2 (19-24) mmol/L ABG O2 Saturation (94-97) % Sodium (137-145) mmol/L Chloride 93 L (98-107) mmol/L Carbon Dioxide 38 H (22-30) mmol/L BUN 47 H (9-20) mg/dL Glucose 150 H (74-99) mg/dL POC Glucose (mg/dL) (75-99) mg/dL Magnesium (1.6-2.3) mg/dL 03/30/19 03/30/19 03/30/19 Range/Units 04:16 05:58 06:02 RBC (4.30-5.90) m/uL Hgb (13.0-17.5) gm/dL Hct (39.0-53.0) % MCV (80.0-100.0) fL Neutrophils # (1.3-7.7) k/uL Lymphocytes # (1.0-4.8) k/uL APTT (22.0-30.0) sec ABG pH (7.35-7.45) ABG pCO2 78 H* (35-45) mmHg ABG pO2 69 L (83-108) mmHg ABG HCO3 43 H* (21-25) mmol/L ABG Total CO2 45 H (19-24) mmol/L ABG O2 Saturation 93.4 L (94-97) % Sodium (137-145) mmol/L Chloride (98-107) mmol/L Carbon Dioxide (22-30) mmol/L BUN (9-20) mg/dL Glucose (74-99) mg/dL POC Glucose (mg/dL) 170 H (75-99) mg/dL Magnesium 2.7 H (1.6-2.3) mg/dL Assessment and Plan Plan: Assessment: #1. Acute on chronic hypoxemic and hypercapnic respiratory failure secondary to chronic obstructive pulmonary disease exacerbation, completed but acute tracheobronchitis/pneumonitis/alveolitis #2. New onset atrial fibrillation with rapid ventricular response, was managed with Cardizem and IV heparin, currently on oral anticoagulation in the form of Eliquis, likely in sinus rhythm #3. Elevated d-dimer, CT chest was negative for pulmonary embolism #4. Severe chronic obstructive pulmonary disease with chronic hypoxemic and hypercapnic respiratory failure, with baseline FEV1 of 14% of predicted #5. History of benign essential hypertension #6. Hyperlipidemia #7. Coronary artery disease with previous stent placement #8. History of having chronic tobacco dependence, currently in remission #9. History of cor pulmonale with pulmonary hypertension and lower extremity edema Plan: We'll continue current medical therapy, we will give the patient trial of AIRVO, I flow oxygen, continue with IV steroids, and antibiotics, last signs are stable, patient back in sinus rhythm, he is on oral anticoagulation, his rate is controlled. We'll continue to monitor the patient in the intensive care unit. I performed a history & physical examination of the patient and discussed their management with my nurse practitioner, Linda Erickson. I reviewed the nurse practitioner's note and agree with the documented findings and plan of care. Lung sounds are positive for end exp wheezes throughout the lung diamond. The findings and the impression was discussed with the patient. I attest to the documentation by the nurse practitioner. Time with Patient: Less than 30
[2019-03-30] MEDS: VERAPAMIL SR 240 MG TABLET.ER PO SCH (10:12)
[2019-03-30] MEDS: busPIRone HCl 10 MG TAB PO SCH ×2 (10:12→21:10)
[2019-03-30] MEDS: AMOXIC-POT CLAV 875-125MG 1 EACH TAB PO SCH ×2 (10:13→21:11)
[2019-03-30] MEDS: APIXABAN 5 MG TAB PO SCH ×2 (10:13→21:10)
--- NOTE | 2019-03-30 10:19 | PN ---
PROGRESS NOTE Kulwant is a 63-year-old gentleman who is in the ICU with COPD exacerbation, has known coronary artery disease and hypertension, and dyslipidemia. We are following the patient because of his atrial fibrillation. He converted back to sinus rhythm and remains in sinus rhythm and does not require cardioversion this morning. On exam, he appears comfortable at rest. Heart rate is around 100 beats per minute. Blood pressure is 137/80. Respiratory rate is 18. Chest exam reveals diminished air entry at the bases with occasional rhonchi. Heart exam reveals first and second heart sounds. No gallop. Examination of extremities did not reveal any edema. Peripheral pulses are felt. The patient is currently on Eliquis, aspirin, Lasix 40 b.i.d., insulin, Calan SR. ASSESSMENT: Atypical atrial flutter. PLAN: Patient converted to sinus rhythm spontaneously. I am going to stop the IV heparin, start him on Eliquis. Stop the IV Cardizem. Continue the Isoptin. MMODL / IJN: [id number] /
[2019-03-30] MEDS ORDERED: ONDANSETRON 4 MG/2 ML VIAL IVP STA (10:28)
[2019-03-30] MEDS ORDERED: ONDANSETRON 4 MG/2 ML VIAL IVP PRN (10:28)
[2019-03-30] MEDS: LORazepam 2 MG/ML INJ IV PRN (11:04)
[2019-03-30 11:21] LABS: Glucose,Whole Blood 141 mg/dL (75-99)
[2019-03-30 12:04] VITALS: BMI 33.5
[2019-03-30] MEDS ORDERED: BISACODYL 10 MG SUPP RECTAL PRN (13:07)
[2019-03-30] MEDS: DILTIAZEM 125 MG in SODIUM CHLORIDE 0.9% 100 ML IV SCH (13:30)
[2019-03-30] MEDS: SODIUM CHLORIDE 0.9% 1,000 ML IV SCH (15:33)
--- NOTE | 2019-03-30 15:59 | P.PN ---
Subjective Progress Note Date: 03/30/19 Principal diagnosis: This is a 63 year old male that was admitted for COPD exacerbation and atrial fibrillation with RVR and is being closely monitored. Pulmonology is following this patient closely along with cardiology. Patient is sitting straight up in bed with moderated shortness of breath and states that he feels no better. Patient is 02 dependent and currently on 5L via NC. Patient is currently still on the Cardizem drip but will be weaned off once rate controlled and verapamil will be started per cardiology. Patient denies any chest pain or fevers at this time. 03/30/19 Patient is in the ICU as he was having an increase in labored breathing. Patient was on 5L via NC and labored. Patient was placed on a BIPAP. Patient was seen this morning and a trial of O2 at 5L was attempted again due to him not liking the BIPAP and stating that he had a dry mouth and trying to take it off multiple times. Patient oxygen saturation was dropping under the 80's. Patient is cur rently on the Bipap and vital signs have improved. Patient is more comfortable and respirations are non-labored at this time. Patient is being monitored closely. Will continue to monitor labs and vitals closely. Patient denies any chest pain or palpitations at this time. patient is afebrile. Patient's and daughter are at the bedside. Discussed with the and daughter about code status given his guarded prognosis. Will follow-up with them about that later today. Patient has not had a bowel movement in five days and abdomen is slightly distended. Will obtain an abdominal flat plate xray if respiratory status is stable at bedside. A laxative was ordered. Patient is unable to get out of bed at this time. Prognosis is guarded. Objective - Vital Signs Vital signs: Vital Signs Temp 98.5 F 03/30/19 08:00 Pulse 112 H 03/30/19 11:37 Resp 14 03/30/19 10:30 BP 157/81 03/30/19 10:30 Pulse Ox 87 L 03/30/19 10:30 Intake & Output 03/29/19 03/30/19 03/30/19 18:59 06:59 18:59 Intake Total 120 140 160 Output Total 2271 1495 610 Balance -1763 -9013 -573 Weight 105.9 kg Intake: IV 140 160 Sodium Chloride 0.9% 1, 140 160 000 ml @ 20 mls/hr IV . Q24H [facility] Rx#:[id number] Oral 120 Output: Urine 2275 1495 610 Straight 600 Other: Voiding Method Indwelling Catheter Indwelling Catheter # Voids 1 - Exam On exam, the patient is alert and oriented and appears in no acute distress on BIPAP. Vital signs are blood pressure 157/81, pulse is 115 and irregular, respirations are 14 and non-labored, oxygen saturation is 92% on BiPap Heent: conjunctivae normal, EOMs intact Neck: supple, no lymph nodes noted, JVD noted Cardiovascular: S1, S2 irregular, in afib Respiratory: breath sounds diminished with expiratory wheezing noted Abdomen: soft, non-tender, no masses noted, mildly distended Legs: no swelling with mild pedal edema noted Nervous system: no focal deficits Skin: dry, no rashes or lesions noted. - Labs CBC & Chem 7: 03/30/19 04:16 03/30/19 04:16 Labs: Abnormal Lab Results - Last 24 Hours (Table) 03/29/19 03/29/19 03/29/19 Range/Units 16:36 17:27 21:23 RBC (4.30-5.90) m/uL Hgb (13.0-17.5) gm/dL Hct (39.0-53.0) % MCV (80.0-100.0) fL Neutrophils # (1.3-7.7) k/uL Lymphocytes # (1.0-4.8) k/uL APTT (22.0-30.0) sec ABG pH 7.31 L (7.35-7.45) ABG pCO2 80 H* (35-45) mmHg ABG pO2 59 L* (83-108) mmHg ABG HCO3 40 H* (21-25) mmol/L ABG Total CO2 43 H (19-24) mmol/L ABG O2 Saturation 88.4 L (94-97) % Sodium (137-145) mmol/L Chloride (98-107) mmol/L Carbon Dioxide (22-30) mmol/L BUN (9-20) mg/dL Glucose (74-99) mg/dL POC Glucose (mg/dL) 162 H 167 H (75-99) mg/dL Magnesium (1.6-2.3) mg/dL 03/29/19 03/29/19 03/29/19 Range/Units 22:59 23:04 23:04 RBC 3.19 L (4.30-5.90) m/uL Hgb 10.0 L (13.0-17.5) gm/dL Hct 32.2 L (39.0-53.0) % MCV 100.9 H (80.0-100.0) fL Neutrophils # 7.9 H (1.3-7.7) k/uL Lymphocytes # 0.2 L (1.0-4.8) k/uL APTT (22.0-30.0) sec ABG pH 7.27 L (7.35-7.45) ABG pCO2 90 H* (35-45) mmHg ABG pO2 70 L (83-108) mmHg ABG HCO3 42 H* (21-25) mmol/L ABG Total CO2 44 H (19-24) mmol/L ABG O2 Saturation 92.4 L (94-97) % Sodium 135 L (137-145) mmol/L Chloride 93 L (98-107) mmol/L Carbon Dioxide 36 H (22-30) mmol/L BUN 54 H (9-20) mg/dL Glucose 182 H (74-99) mg/dL POC Glucose (mg/dL) (75-99) mg/dL Magnesium 2.5 H (1.6-2.3) mg/dL 03/29/19 03/30/19 03/30/19 Range/Units 23:55 01:05 04:16 RBC 3.09 L (4.30-5.90) m/uL Hgb 9.7 L (13.0-17.5) gm/dL Hct 31.2 L (39.0-53.0) % MCV 100.9 H (80.0-100.0) fL Neutrophils # (1.3-7.7) k/uL Lymphocytes # 0.2 L (1.0-4.8) k/uL APTT (22.0-30.0) sec ABG pH 7.34 L (7.35-7.45) ABG pCO2 78 H* (35-45) mmHg ABG pO2 64 L (83-108) mmHg ABG HCO3 42 H* (21-25) mmol/L ABG Total CO2 44 H (19-24) mmol/L ABG O2 Saturation 92.0 L (94-97) % Sodium (137-145) mmol/L Chloride (98-107) mmol/L Carbon Dioxide (22-30) mmol/L BUN (9-20) mg/dL Glucose (74-99) mg/dL POC Glucose (mg/dL) 171 H (75-99) mg/dL Magnesium (1.6-2.3) mg/dL 03/30/19 03/30/19 03/30/19 Range/Units 04:16 04:16 04:16 RBC (4.30-5.90) m/uL Hgb (13.0-17.5) gm/dL Hct (39.0-53.0) % MCV (80.0-100.0) fL Neutrophils # (1.3-7.7) k/uL Lymphocytes # (1.0-4.8) k/uL APTT 64.7 H (22.0-30.0) sec ABG pH (7.35-7.45) ABG pCO2 (35-45) mmHg ABG pO2 (83-108) mmHg ABG HCO3 (21-25) mmol/L ABG Total CO2 (19-24) mmol/L ABG O2 Saturation (94-97) % Sodium (137-145) mmol/L Chloride 93 L (98-107) mmol/L Carbon Dioxide 38 H (22-30) mmol/L BUN 47 H (9-20) mg/dL Glucose 150 H (74-99) mg/dL POC Glucose (mg/dL) (75-99) mg/dL Magnesium 2.7 H (1.6-2.3) mg/dL 03/30/19 03/30/19 03/30/19 Range/Units 05:58 06:02 11:09 RBC (4.30-5.90) m/uL Hgb (13.0-17.5) gm/dL Hct (39.0-53.0) % MCV (80.0-100.0) fL Neutrophils # (1.3-7.7) k/uL Lymphocytes # (1.0-4.8) k/uL APTT (22.0-30.0) sec ABG pH (7.35-7.45) ABG pCO2 78 H* (35-45) mmHg ABG pO2 69 L (83-108) mmHg ABG HCO3 43 H* (21-25) mmol/L ABG Total CO2 45 H (19-24) mmol/L ABG O2 Saturation 93.4 L (94-97) % Sodium (137-145) mmol/L Chloride (98-107) mmol/L Carbon Dioxide (22-30) mmol/L BUN (9-20) mg/dL Glucose (74-99) mg/dL POC Glucose (mg/dL) 170 H 141 H (75-99) mg/dL Magnesium (1.6-2.3) mg/dL Assessment and Plan Assessment: Shortness of breath: secondary to COPD exacerbation. Patient receiving inhalation treatments and steroids. Patient is currently on BIPAP Atrial flutter: secondary to COPD exacerbation, currently in sinus tachycardia rhythm Acute hypercapnic respiratory failure secondary to COPD exacerbation Elevated D-dimer: CT angiogram of the chest is negative for pulmonary embolism but does show 3 right lower lobe pulmonary nodules noted to be measuring up to 8.2mm. Chronic hypercapnic respiratory failure with end-stage COPD. 02 dependent at 4L via NC at home. Currently on Bipap Coronary disease with stent placement in the past. current ejection fraction is 50-55% Hyperlipidemia Hypertension: Patient is on Verapamil and was increased to 480mg. Cardiology following. Possible right sided heart failure and possibility of chronic diastolic dysfunction with acute exacerbation. Oral lasix 40 mg BID Recommendations and discussion: Recommend to continue current medication management as well as symptomatic management. Will continue to monitor closely. Patient will continue to receive inhalation treatments along with IV steroids. Discussed with the patients family at length about code status and what is best for the patient. Spoke to RN with Hospice and per the family's request, the patient will be made hospice with comfort measures. Family is awaiting for son to arrive. Prognosis is poor and extremely guarded.
--- NOTE | 2019-03-30 16:30 | XR ---
Abdomen HISTORY: Distention Frontal view of the abdomen on 3 images Lung bases show patchy increased density. There are air-filled loops of small and large bowel. The st omach appears gas distended. No evident pneumoperitoneum. Exam somewhat limited by technique, hazy in creased density present over the lower abdomen. Degenerative disc changes in the visualized spine. No definite pathologic calcification. IMPRESSION: Correlate for gastric outlet obstruction, there could be underlying ascites, difficult to exclude basilar pneumonia.
--- NOTE | 2019-03-30 16:57 | XR ---
EXAMINATION TYPE: XR chest 1V DATE OF EXAM: 03/30/2019 COMPARISON: Prior chest x-ray 03/27/2019 HISTORY: COPD and shortness of breath TECHNIQUE: frontal view of the chest is obtained on 2 images. FINDINGS: Findings are similar to prior. There is bibasilar increased density. Interstitium is incre ased. There are prominent lung lines compatible with COPD. No evident pneumothorax. Heart size is st able. There are overlying cardiac leads. Aorta is dense. IMPRESSION: Stable chest x-ray. There is underlying emphysema. There may be basilar airspace disease versus atelectasis and small effusion. Correlate to exclude interstitial edema.
[2019-03-30 18:15] LABS: Glucose,Whole Blood 168 mg/dL (75-99)
[2019-03-30] MEDS: MELATONIN 5 MG TABLET PO SCH (21:29)
[2019-03-31 00:06] LABS: Glucose,Whole Blood 170 mg/dL (75-99)
[2019-03-31] MEDS: LORazepam 2 MG/ML INJ IV PRN ×2 (00:08→04:28)
[2019-03-31] MEDS: DILTIAZEM 125 MG in SODIUM CHLORIDE 0.9% 100 ML IV SCH (01:08)
[2019-03-31] MEDS: IPRATROPIUM-ALBUTEROL 3 ML NEB INHALATION PRN (03:10)
[2019-03-31] MEDS: INSULIN ASPART (NovoLOG) 100 UNIT/ML VIAL SQ SCH ×2 (05:45→12:15)
[2019-03-31] MEDS: methylPREDNISolone SOD SUCCI 125 MG/2 ML VIAL IV SCH ×2 (05:45→12:17)
[2019-03-31 05:52] LABS: Glucose,Whole Blood 195 mg/dL (75-99)
--- NOTE | 2019-03-31 08:17 | P.PN ---
Subjective Progress Note Date: 03/31/19 On 03/31/2019 the patient is back on the BiPAP this morning. Yesterday I was able to put him on high flow oxygen and he was doing well throughout the day and in the night time nanny hours the patient became aggressive more lethargic and somnolent. That point he was placed on a BiPAP at a pressure of 12/5 cm of water. This morning he is very difficult to arouse. His exhaled tidal volumes around 250. His minute ventilation is around 5 L per minute. He is extremely bronchospastic and wheezy. Although is tolerating the full face BiPAP mask without any leaks, his breathing is somewhat shallow probably related to his advanced COPD. His FiO2 to 40%. Pulse ox is around 97%. Chest x-ray showing some limited bibasilar pulmonary infiltrates. He withdraws to deep painful stimulation. He does not open up his eyes. Is not following any commands. His fem-fem of the abdomen done yesterday showed gastric distention probably related to BiPAP use. On today's evaluation abdomen remains somewhat distended. He remains on IV Solu Medrol. He remains on a combination of Perforomist and Pulmicort neb last 2 minutes twice a day. He is on albuterol and Atrovent nebulized she was 4 times a day. He was receiving oral Augmentin. Hemodynamically stable. He is afebrile. The patient has advanced COPD. He has been followed up through our office and his FEV1 of 40% of predicted. He was having runs of atrial fibrillation with rapid ventricular response. Currently is in a sinus rhythm and Cardizem still running at 10 milligrams an hour. He is also on IV heparin. The echo of the heart shows a preserved LV function with an ejection fraction of 55%. The patient has severe pulmonary hypertension probably related to his COPD and chronic hypoxemia. His estimated pulmonary artery pressures around 54 mmHg. and a meeting with the family, the CODE STATUS is been switched to DO NOT RESUSCITATE and there are someconsideration for hospice care with the next 24 hours. Objective - Vital Signs Vital signs: Vital Signs Temp 97.4 F L 03/31/19 04:00 Pulse 92 03/31/19 07:00 Resp 22 03/31/19 07:00 BP 118/66 03/31/19 07:00 Pulse Ox 93 L 03/31/19 07:00 Intake & Output 03/30/19 03/31/19 03/31/19 18:59 06:59 18:59 Intake Total 240 606.333 20 Output Total 920 970 15 Balance -680 -363.667 5 Weight 105.9 kg 106.1 kg Intake: IV 240 240 20 Sodium Chloride 0.9% 1, 240 240 20 000 ml @ 20 mls/hr IV . Q24H [facility] Rx#:[id number] Intake, IV Titration 116.333 Amount Diltiazem 125 mg In 116.333 Sodium Chloride 0.9% 100 ml @ 10 MG/HR 10 mls/hr IV .[id number] [facility] Rx#: [id number] Oral 250 Output: Urine 920 970 15 Other: Voiding Method Indwelling Catheter Indwelling Catheter - Exam GENERAL EXAM: Patient is sent for a mechanical ventilator. He is quite lethargic and somnolent withdraws only to deep painful stimulation. Cannot hold a conversation. Suspect CO2 narcosis.. HEAD: Normocephalic/atraumatic. EYES: Normal reaction of pupils, equal size. Conjunctiva pink, sclera white. NOSE: Clear with pink turbinates. THROAT: No erythema or exudates. NECK: No masses, no JVD, no thyroid enlargement, no adenopathy. CHEST: No chest wall deformity. Symmetrical expansion. LUNGS diminished air entry bilaterally along with scattered expiratory wheezes throughout the lung field bilaterally. Exhaled tidal volume is also low while in the BiPAP at a pressure of 12/5 cm of water. CVS: Regular rate and rhythm, normal S1 and S2, no gallops, no murmurs, no rubs ABDOMEN: Soft, nontender. No hepatosplenomegaly, normal bowel sounds, no guarding or rigidity. EXTREMITIES: No clubbing, no edema, no cyanosis, 2+ pulses and upper and lower extremities. MUSCULOSKELETAL: Muscle strength and tone normal. SPINE: No scoliosis or deformity SKIN: No rashes CENTRAL NERVOUS SYSTEM: Nonresponsive somnolent and sleepy on today's evaluation. Withdraws only to the painful stimulation. PSYCHIATRIC: Unable to assess - Labs CBC & Chem 7: 03/30/19 04:16 03/30/19 04:16 Labs: Abnormal Lab Results - Last 24 Hours (Table) 03/30/19 03/30/19 03/30/19 Range/Units 11:09 18:02 23:53 POC Glucose (mg/dL) 141 H 168 H 170 H (75-99) mg/dL 03/31/19 Range/Units 05:41 POC Glucose (mg/dL) 195 H (75-99) mg/dL Assessment and Plan Plan: #1. Acute on chronic hypoxemic and hypercapnic respiratory failure secondary to chronic obstructive pulmonary disease exacerbation, completed but acute tracheobronchitis/pneumonitis/alveolitis, the patient is still on a BiPAP with obvious worsening in the pulmonary status and this running the patient is quite lethargic somnolent and possibly CO2 narcosis same time next a tidal volumes are low with a low minute ventilation. Chest x-ray showed some lower lobe pulmonary infiltrates and the flat film of the abdomen showed gastric distention probably related to ongoing BiPAP therapy. Blood gases has been ordered. CODE STATUS is DO NOT RESUSCITATE. Consider hospice care as the patient has severe advanced COPD with an FEV1 of 14% of predicted at baseline. #2. New onset atrial fibrillation with rapid ventricular response, was managed with Cardizem and IV heparin, currently on oral anticoagulation in the form of Eliquis, likely in sinus rhythm #3. Elevated d-dimer, CT chest was negative for pulmonary embolism #4. Severe chronic obstructive pulmonary disease with chronic hypoxemic and hypercapnic respiratory failure, with baseline FEV1 of 14% of predicted #5. History of benign essential hypertension #6. Hyperlipidemia #7. Coronary artery disease with previous stent placement #8. History of having chronic tobacco dependence, currently in remission #9. History of cor pulmonale with pulmonary hypertension and lower extremity edema, and the patient has severe pulmonary hypertension on echocardiogram #10 diminished level of consciousness, consider CO2 narcosis #11 DNR/DNI CODE STATUS Plan Will switch the BiPAP to a setting of 15/5 and with this change the patient was able to exhale more than 400 mL of tidal volume. The minute ventilation is up to 8.5 L per minute. Continue bronchodilators. Continue steroids. Obtain a blood gas. The patient is a DO NOT INTUBATE CODE STATUS. Unfortunately his treatment is maximized. We'll stop the oral Augmentin and switch this patient to IV Zosyn. Continue the Cardizem drip. We will have a family meeting. Possible hospice care today especially of his condition doesn't improve. Continue BiPAP therapy for now. Prognosis poor. He has advanced/end-stage lung disease.
[2019-03-31] MEDS ORDERED: PIPERACILLIN-TAZOBACTAM 3.375 GM in SODIUM CHLORIDE 0.9% 100 ML IVPB SCH (08:30)
[2019-03-31 08:37] VITALS: TEMP 96.9
[2019-03-31 08:38] LABS: ABG Base Excess 17.2 mmol/L; ABG Oxygen Saturation 87.7 % (94-97); ABG PO2 61 mmHg (83-108); ABG TCO2 49 mmol/L (19-24); Allen Test Performed? Yes
[2019-03-31] MEDS: PANTOPRAZOLE 40 MG/10 ML VIAL IV SCH (08:40)
[2019-03-31 08:45] LABS: ABG PCO2 115 mmHg (35-45)
[2019-03-31 08:46] LABS: ABG HCO3 45 mmol/L (21-25)
[2019-03-31] MEDS: FORMOTEROL FUMARATE 20 MCG/2 ML NEBU INHALATION SCH (08:46)
[2019-03-31] MEDS: BUDESONIDE 1 MG/2 ML NEBU INHALATION SCH (08:47)
[2019-03-31] MEDS: IPRATROPIUM-ALBUTEROL 3 ML NEB INHALATION SCH (08:47)
[2019-03-31 10:08] VITALS: PULSE 86
[2019-03-31] MEDS ORDERED: DILTIAZEM 125 MG in SODIUM CHLORIDE 0.9% 100 ML IV SCH (10:15)
[2019-03-31] MEDS: HYDROcodone/APAP 5-325MG 1 EACH TAB PO SCH (11:12)
[2019-03-31] MEDS: TAMSULOSIN 0.4 MG CAP.ER.24H PO SCH (11:13)
[2019-03-31 11:53] LABS: Glucose,Whole Blood 164 mg/dL (75-99)
--- NOTE | 2019-03-31 11:53 | PN ---
PROGRESS NOTE Kulwant is a 63-year-old gentleman who was admitted to hospital with COPD exacerbation and respiratory failure. We have been consulted because of atrial fibrillation with rapid ventricular rate. Patient went into AFib with RVR yesterday, but has converted back to sinus. This morning he is in sinus, but is in respiratory failure. He is currently on Eliquis, which he is going to continue and the Cardizem that he was on had been stopped on exam. He is unresponsive. Heart rate is 80 beats per minute. Blood pressure is 118/69, O2 sat is 91%. Chest exam reveals diminished air entry bilaterally. Heart exam reveals first and second heart sounds. No gallop. Exam of extremities reveal trace edema. Peripheral pulses are felt. LABS: Show that the blood gases show a pH of 7.2, pCO2 of 115. CBC shows a hemoglobin of 9.7. ASSESSMENT: 1. Respiratory failure. 2. Paroxysmal atrial fibrillation. PLAN: Patient will continue with current medications. His prognosis is guarded. MMODL / IJN: [id number] /
[2019-03-31] MEDS: busPIRone HCl 10 MG TAB PO SCH (12:09)
[2019-03-31] MEDS: FUROSEMIDE 40 MG TAB PO SCH (12:09)
[2019-03-31] MEDS: APIXABAN 5 MG TAB PO SCH (12:41)
[2019-03-31] MEDS: ASPIRIN 81 MG PO SCH (12:42)
[2019-03-31] MEDS: VERAPAMIL SR 240 MG TABLET.ER PO SCH (12:42)
--- NOTE | 2019-03-31 13:11 | P.PN ---
Subjective Progress Note Date: 03/31/19 Principal diagnosis: This is a 63 year old male that was admitted for COPD exacerbation and atrial fibrillation with RVR and is being closely monitored. Pulmonology is following this patient closely along with cardiology. Patient is sitting straight up in bed with moderated shortness of breath and states that he feels no better. Patient is 02 dependent and currently on 5L via NC. Patient is currently still on the Cardizem drip but will be weaned off once rate controlled and verapamil will be started per cardiology. Patient denies any chest pain or fevers at this time. 03/30/19 Patient is in the ICU as he was having an increase in labored breathing. Patient was on 5L via NC and labored. Patient was placed on a BIPAP. Patient was seen this morning and a trial of O2 at 5L was attempted again due to him not liking the BIPAP and stating that he had a dry mouth and trying to take it off multiple times. Patient oxygen saturation was dropping under the 80's. Patient is cur rently on the Bipap and vital signs have improved. Patient is more comfortable and respirations are non-labored at this time. Patient is being monitored closely. Will continue to monitor labs and vitals closely. Patient denies any chest pain or palpitations at this time. patient is afebrile. Patient's and daughter are at the bedside. Discussed with the and daughter about code status given his guarded prognosis. Will follow-up with them about that later today. Patient has not had a bowel movement in five days and abdomen is slightly distended. Will obtain an abdominal flat plate xray if respiratory status is stable at bedside. A laxative was ordered. Patient is unable to get out of bed at this time. Prognosis is guarded. 03/31/2019 Patient remains in the ICU at this time is on a BiPAP. Patient is obtunded and only responds to painful stimulus. Patient is very lethargic and not responding to commands. The patient's and daughter were discussing hospice with comfort care yesterday afternoon and wanted to see how he did overnight prior to initiating comfort care orders. When visiting the patient this morning the family had not been there yet. Patient is being closely monitored. Patient appears to be breathing more comfortably on the Bipap at this time. Patient is very pale and as mentioned previously not responding to verbal stimuli or following any commands. Patient is still on the Cardizem drip at 5mL/hr and rated is controlled. Patient was on oral Eliquis, but did not take any oral medications today due to somnolence. Patient is on IV heparin. Patient is currently being treated with IV antibiotics Zosyn at this time as he was on oral Augmentin which as been discontinued. Prognosis is extremely guarded and poor at this time. Objective - Vital Signs Vital signs: Vital Signs Temp 96.9 F L 03/31/19 08:30 Pulse 86 03/31/19 11:00 Resp 19 03/31/19 11:00 BP 118/69 03/31/19 11:00 Pulse Ox 91 L 03/31/19 11:00 Intake & Output 03/30/19 03/31/19 03/31/19 18:59 06:59 18:59 Intake Total 240 606.333 175 Output Total 920 970 215 Balance -680 -363.667 -40 Weight 105.9 kg 106.1 kg Intake: IV 240 240 175 Piperacillin-Tazobactam 3 75 .375 gm In Sodium Chloride 0.9% 100 ml @ 25 mls/hr IVPB Q8HR [facility] Rx# :[id number] Sodium Chloride 0.9% 1, 240 240 100 000 ml @ 20 mls/hr IV . Q24H [facility] Rx#:[id number] Intake, IV Titration 116.333 Amount Diltiazem 125 mg In 116.333 Sodium Chloride 0.9% 100 ml @ 10 MG/HR 10 mls/hr IV .[id number] [facility] Rx#: [id number] Oral 250 Output: Urine 920 970 215 Other: Voiding Method Indwelling Catheter Indwelling Catheter Indwelling Catheter - Exam On exam, the patient is obtunded and somnolent and appears in no acute distress on BIPAP. Vital signs are blood pressure 120/73, pulse is 92, respirations are 28, oxygen saturation is 95% on BiPap. Fi02 is 40. Heent: conjunctivae normal, EOMs intact Neck: supple, no lymph nodes noted, JVD noted Cardiovascular: S1, S2 irregular Respiratory: breath sounds diminished with expiratory wheezing noted throughout Abdomen: soft, non-tender, no masses noted, mildly distended still Legs: no swelling with mild pedal edema noted +1-2. SCD's noted bilaterally Nervous system: no focal deficits, somnolent, only responding to painful stimuli Skin: dry, no rashes or lesions noted. skin color is pale - Labs CBC & Chem 7: 03/30/19 04:16 03/30/19 04:16 Labs: Abnormal Lab Results - Last 24 Hours (Table) 03/30/19 03/30/19 03/31/19 Range/Units 18:02 23:53 05:41 ABG pH (7.35-7.45) ABG pCO2 (35-45) mmHg ABG pO2 (83-108) mmHg ABG HCO3 (21-25) mmol/L ABG Total CO2 (19-24) mmol/L ABG O2 Saturation (94-97) % POC Glucose (mg/dL) 168 H 170 H 195 H (75-99) mg/dL 03/31/19 Range/Units 08:36 ABG pH 7.20 L (7.35-7.45) ABG pCO2 115 H* (35-45) mmHg ABG pO2 61 L (83-108) mmHg ABG HCO3 45 H* (21-25) mmol/L ABG Total CO2 49 H (19-24) mmol/L ABG O2 Saturation 87.7 L (94-97) % POC Glucose (mg/dL) (75-99) mg/dL Assessment and Plan Assessment: Shortness of breath: secondary to COPD exacerbation. Patient receiving inhalation treatments and steroids. Patient is currently on BIPAP Atrial flutter: secondary to COPD exacerbation, currently in sinus tachycardia rhythm Acute hypercapnic respiratory failure secondary to COPD exacerbation Elevated D-dimer: CT angiogram of the chest is negative for pulmonary embolism but does show 3 right lower lobe pulmonary nodules noted to be measuring up to 8.2mm. Chronic hypercapnic respiratory failure with end-stage COPD. 02 dependent at 4L via NC at home. Currently on Bipap Coronary disease with stent placement in the past. current ejection fraction is 50-55% Hyperlipidemia Hypertension: Patient is on Verapamil and was increased to 480mg. Cardiology following. Possible right sided heart failure and possibility of chronic diastolic dysfunction with acute exacerbation. Oral lasix 40 mg not given as patient is not taking in anything by mouth. Recommendations and discussion: Recommend to continue current medication management as well as symptomatic management. Will continue to monitor closely. Patient will continue to receive inhalation treatments along with IV steroids and IV antibiotics. Still awaiting a family decision to proceed with hospice and comfort measures. Prognosis is poor and extremely guarded.
[2019-03-31 13:15] VITALS: BP 127/72; RESP 17
[2019-04-01] MEDS ORDERED: PANTOPRAZOLE 40 MG TABLET PO SCH (09:00)
--- NOTE | 2019-04-01 19:01 | DS ---
DISCHARGE SUMMARY PRIMARY CAUSE OF : Chronic obstructive pulmonary disease. OTHER DIAGNOSES: 1. Chronic obstructive pulmonary disease acute exacerbation, with acute hypoxic respiratory failure on BiPAP. 2. Atrial flutter secondary to chronic obstructive pulmonary disease. 3. Acute hypercapnic hypoxic respiratory secondary to chronic obstructive pulmonary disease, acute exacerbation. 4. Elevated D-dimer with CT angio negative for pulmonary embolism. 5. Pulmonary nodules. 6. Chronic hypercapnic respiratory failure on home oxygen 4 L nasal cannula. 7. Coronary artery disease, stent history. 8. Hyperlipidemia. 9. Hypertension. 10.Right-sided heart failure with chronic diastolic dysfunction with congestive heart failure acute exacerbation. HISTORY OF PRESENT ILLNESS: This 63-year-old gentleman with a past medical history of multiple medical problems, as mentioned earlier, presented with acute hypoxic hypercarbic respiratory failure secondary to chronic obstructive pulmonary disease acute exacerbation. Patient also had multiple complex medical issues also. The patient was monitored closely in ICU. The intensive treatment was given, but however the patient did not improve. Pulmonary saw the patient. Please refer to the multiple progress and consultation notes for further information. Because of lack of improvement, the case was discussed with the family at length and the family opted for hospice care and the patient succumbed to his above mentioned multiple complex medical issues including COPD. The prognosis remained extremely guarded throughout the hospital stay, which was discussed at length with the family on multiple occasions. VIRI / REAL: [id number] /
== END 2019-03-31 13:15 | disposition hospice, inpatient (51) | DRG 190 ==
LOC: EC 12:46 → 3SCARD 16:20 → 2SICU 03-29 23:49
PROVIDERS: ADMIT Internal Medicine; ATTEND Internal Medicine
PROC: 5A09457 Assistance with Respiratory Ventilation, 24-96 Consecutive Hours, Continuous Positive Airway Pressure (ICD-10-PCS; principal; 2019-03-25)
DX: J44.1 Chronic obstructive pulmonary disease with (acute) exacerbation (principal); J96.22 Acute and chronic respiratory failure with hypercapnia; I50.33 Acute on chronic diastolic (congestive) heart failure; J96.21 Acute and chronic respiratory failure with hypoxia; I48.4 Atypical atrial flutter; J44.0 Chronic obstructive pulmonary disease with (acute) lower respiratory infection; J20.9 Acute bronchitis, unspecified; I11.0 Hypertensive heart disease with heart failure; I25.10 Atherosclerotic heart disease of native coronary artery without angina pectoris; Z51.5 Encounter for palliative care; Z66 Do not resuscitate; I27.81 Cor pulmonale (chronic); E78.5 Hyperlipidemia, unspecified; I27.29 Other secondary pulmonary hypertension; K31.89 Other diseases of stomach and duodenum; Z95.5 Presence of coronary angioplasty implant and graft; I25.2 Old myocardial infarction; Z79.899 Other long term (current) drug therapy; Z99.81 Dependence on supplemental oxygen; Z79.01 Long term (current) use of anticoagulants; Z98.890 Other specified postprocedural states; Z87.891 Personal history of nicotine dependence
CPT/HCPCS: 36415; 36600; 71045; 71046; 71275; 74018; 80048; 80053; 80061; 82805; 83735; 83880; 84443; 84484; 85025; 85027; 85379; 85610; 85730; 93005; 93306; 94640; 94660; 94760; 96365; 96366; 96368; 96375; 96376; 99291

== ENCOUNTER 2019-03-30 15:27 | Inpatient (IN) | payer MEDICAID ==
[2019-03-30] MEDS ORDERED: ACETAMINOPHEN SUPPOSITORY 650 MG SUPP RECTAL PRN (16:02)
[2019-03-30] MEDS ORDERED: LORazepam 2 MG/ML INJ IV PRN (16:02)
[2019-03-30] MEDS ORDERED: MORPHINE SULFATE 2 MG/ML SYRINGE IV PRN (16:02)
[2019-03-30] MEDS ORDERED: ONDANSETRON 4 MG/2 ML VIAL IVP PRN (16:02)
[2019-03-30] MEDS ORDERED: ATROPINE OPHTH SOLN 1% 5ML BTL SUBLINGUAL PRN (16:02)
[2019-03-30] MEDS ORDERED: MORPHINE SULFATE 100 MG in SODIUM CHLORIDE 0.9% 90 ML IV SCH (16:15)
[2019-03-30] MEDS ORDERED: SCOPOLAMINE 1.5MG/72HR PATCH TRANSDERM SCH (16:30)
[2019-03-31 15:19] VITALS: BP 138/81; PULSE 110
[2019-03-31 15:21] VITALS: RESP 18
[2019-03-31 15:22] VITALS: TEMP 97.6
== END 2019-03-31 20:10 | disposition expired | DRG 951 ==
LOC: 2SICU 03-31 13:18
PROVIDERS: ADMIT Internal Medicine; ATTEND Internal Medicine
DX: Z51.5 Encounter for palliative care (principal); I25.10 Atherosclerotic heart disease of native coronary artery without angina pectoris; J43.9 Emphysema, unspecified; E78.5 Hyperlipidemia, unspecified; I10 Essential (primary) hypertension; I25.2 Old myocardial infarction; Z95.5 Presence of coronary angioplasty implant and graft; Z87.891 Personal history of nicotine dependence